=== PATIENT | male | born 1975 | race Caucasian/White ===

== ENCOUNTER 2018-05-02 14:58 | Inpatient (IN) | payer OTHER ==
--- NOTE | 2018-05-02 15:22 | EDPHY ---
H & P Time Seen by Provider: 05/02/18 15:17 Smoking Status: Never smoked Allergies/Adverse Reactions: No Known Allergies Allergy (Unverified 07/11/15 21:38) Home Medications: Medication Instructions Recorded Woodburn Carbonate [Woodburn 900 mg PO HS #0 cap 06/25/16 Carbonate Cap 300 mg (*)] Lamictal 05/02/18 Zyprexa 05/02/18 MDM/Departure - Depart Referrals: Patient,NotPresent [Primary Care Provider] - As per Instructions
--- NOTE | 2018-05-02 15:25 | EDPHY ---
H & P Time Seen by Provider: 05/02/18 15:17 HPI/ROS: CHIEF COMPLAINT: psychosis HISTORY OF PRESENT ILLNESS: The patient is a 43-year-old man with a history of bipolar and schizophrenia who police state was sent from [facility] with a hold stating that he is decompensated and is unable to care for himself. The note states that he is not eating or drinking or taking his medications. The patient tells me that he has nothing to do with [facility] but was simply in his apartment when police showed up and told him he was on a hold. He denies hallucinations. He denies suicidality. He denies recent drug or alcohol use. Severity: Moderate Modifying factors: None REVIEW OF SYSTEMS: Constitutional: denies: chills, fever, recent illness, recent injury EENTM: denies: blurred vision, double vision, nose congestion Respiratory: denies: cough, shortness of breath Cardiac: denies: chest pain, irregular heart rate, lightheadedness, palpitations Gastrointestinal/Abdominal: denies: abdominal pain, diarrhea, nausea, vomiting, blood streaked stools Genitourinary: denies: dysuria, frequency, hematuria, pain Musculoskeletal: denies: joint pain, muscle pain Skin: denies: lesions, rash, jaundice, bruising Neurological: denies: headache, numbness, paresthesia, tingling, dizziness, weakness Hematologic/Lymphatic: denies: blood clots, easy bleeding, easy bruising Immunologic/allergic: denies: HIV/AIDS, transplant EXAM: GENERAL: Somewhat disheveled food on face, well-nourished and in no acute distress. HEAD: Atraumatic, normocephalic. EYES: Pupils equal round and reactive to light, extraocular movements intact, sclera anicteric, conjunctiva are normal. ENT: TMs normal, nares patent, oropharynx clear without exudates. Moist mucous membranes. NECK: Normal range of motion, supple without lymphadenopathy or JVD. LUNGS: Breath sounds clear to auscultation bilaterally and equal. No wheezes rales or rhonchi. HEART: Regular rate and rhythm without murmurs, rubs or gallops. ABDOMEN: Soft, nontender, normoactive bowel sounds. No guarding, no rebound. No masses appreciated. BACK: No CVA tenderness, no spinal tenderness, step-offs or deformities EXTREMITIES: Normal range of motion, no pitting or edema. No clubbing or cyanosis. NEUROLOGICAL: Cranial nerves II through XII grossly intact. Normal speech, normal gait. 5/5 strength, normal movement in all extremities, normal sensation , normal reflexes PSYCH: Somewhat distracted, disheveled SKIN: Warm, dry, normal turgor, no visible rashes or lesions. Source: Patient, RN/MD Exam Limitations: Clinical condition - Medical/Surgical History Hx Asthma: No Hx Chronic Respiratory Disease: No Hx Diabetes: No Hx Cardiac Disease: No Hx Renal Disease: No Hx Cirrhosis: No Hx Alcoholism: No Hx HIV/AIDS: No Hx Splenectomy or Spleen Trauma: No Other PMH: Bipolar/ Psychotic break - Family History Significant Family History: No pertinent family hx - Social History Smoking Status: Never smoked Alcohol Use: Sober Drug Use: None Constitutional: Initial Vital Signs Temperature (C) 36.5 C 05/02/18 14:58 Heart Rate 75 05/02/18 14:58 Respiratory Rate 16 05/02/18 14:58 Blood Pressure 140/85 H 05/02/18 14:58 O2 Sat (%) 96 05/02/18 14:58 O2 Delivery Mode Room Air Allergies/Adverse Reactions: No Known Allergies Allergy (Unverified 07/11/15 21:38) Home Medications: Medication Instructions Recorded OLANZapine [ZyPREXA 2.5 mg (*)] 5 mg PO HS 05/02/18 lamoTRIgine [LamICTAL 100 MG (*)] 200 mg PO HS 05/02/18 Wheatcroft Carbonate ER [Eskalith Cr 900 mg PO HS 05/03/18 450 mg (*)] Medical Decision Making ED Course/Re-evaluation: 10:30 p.m. the patient has been evaluated and has been accepted at [address] [place] [address] Montague. We will complete transfer paperwork. Differential Diagnosis: Partial list of the Differential diagnosis considered include but were not limited to; schizophrenia, depression, suicidality and although unlikely based on the history and physical exam, I also considered intoxication, head injury, infection. - Data Points Laboratory Results: Laboratory Results 05/02/18 15:20 05/02/18 15:20 Medications Given: Lamotrigine (Lamictal) 200 mg PO [facility] Stop: 10/30/18 20:59 Last Admin: 05/03/18 20:40 Dose: 200 mg Wheatcroft Carbonate (Eskalith Cr) 900 mg PO HS [facility] Stop: 10/30/18 20:59 Last Admin: 05/03/18 20:39 Dose: 900 mg Olanzapine (Zyprexa Zydis) 10 mg PO HS [facility] Stop: 10/30/18 20:59 Last Admin: 05/03/18 20:39 Dose: 10 mg Discontinued Medications Lamotrigine (Lamictal) 200 mg PO EDNOW ONE Stop: 05/02/18 23:37 Last Admin: 05/02/18 23:48 Dose: 200 mg Wheatcroft Carbonate (Eskalith Cr) 900 mg PO EDNOW ONE Stop: 05/02/18 23:46 Last Admin: 05/02/18 23:48 Dose: 900 mg Olanzapine (Zyprexa Zydis) 5 mg PO EDNOW ONE Stop: 05/02/18 23:37 Last Admin: 05/02/18 23:49 Dose: 5 mg Departure - Departure Disposition: [facility] IP Clinical Impression: Psychosis Qualifiers: Psychosis type: unspecified psychosis type Qualified Code(s): F29 - Unspecified psychosis not due to a substance or known physiological condition Condition: Fair
[2018-05-02 15:34] LABS: PLATELET COUNT 188 10^3/uL (150-400)
--- NOTE | 2018-05-02 23:17 | ASMTTLCEVL ---
[facility] Evaluation - Basic Information Evaluation Start Date and 05/02/2018 10:00 PM Time Hospital Status Answers: M1 Hold 72-hr M1 Hold Start Date 05/02/2018 01:55 PM and Time Patient statement Notes: "It's evil. The police came in to my room and they wouldn't leave. They put a M1 hold on me." Narrative Notes: Pt is a 43 y/o , single, childless, unemployed male who lives alone under the care of [facility] after who was brought to [facility] Ed by [employer] after his psychiatrist and therapist noticed pt decompensating. Per Ivan Peterson, pt has had 2 years without an episode. Pt's parents live in [place] he checks in with them by phone every week and he is pretty consistent. When he did not check in this past week, they called [facility] to check on pt. Ivan stated that normally pt is very calm and cooperative and today when he went to check on him and rang his doorbell, pt was livid and became very upset that the police were there. Pt has a hx of not drinking or eating so they were concerned he may not have been staying hydrated. Pt refused IV fluids in the ED agreed to drink juice and water. Pt appeared disheveled, malodourous, and uncooperative during the evaluation. Pt appeared to be responding to internal stimuli throughout the evaluation. Diagnosis History Notes: Pt has a hx of Bipolar disorder, with psychotic features. Prior suicide attempts Notes: None reported. No self-harm hx except that in these acute states pt has been known to go without eating going on 2 weeks. It does not seem intentional. Prior hospitalizations Notes: Pt has been to [facility] and . Pt was last hospitalized at 07/12/15 through to 08/15/15 and 05/25/16-06/25/16. Pt was at [facility] prior to that for another lengthy stay. Pt reportedly kept trying to leave there. When pt left in August last year, he stepped down through [facility]. Treatment Responses Notes: Unknown History of violence Notes: None reported. Therapist: Ivan Peterson MA, [phone] Psychiatrist: Dr. Gina Morfin [phone] Medications (name, dosage, route, freq uency) Notes: lithium carbonate er 900 mg p.o. at bedtime, Lamictal, Zyprexa. Allergies/Reaction Notes: None known Sleep Notes: Unable to assess. Appetite Notes: Unable to assess. Medical/Surgical history Notes: None reported. Substance use history (frequency, intensity, his tory, duration) Notes: Pt was negative for etoh/doa. His hx does not include any use or abuse of substances. Family composition Notes: Parents (Bienvenido and Lian) who live in [place] are involved. Per previous [facility] records, Pts soc Delicia is listed on his face sheet and mentioned in previous reports but when caption writer asked about his family, pt said he has talked to his parents in a few weeks and that I should strike his soc off the list. Family psychiatric/substance abuse history Notes: There is a family hx of alcoholism with pts paternal aunt and his biological older sister. Maternal gmoc had hx of depression and post- depression and was hospitalized for 2 months after childbirth at a psychiatric hospital. Developmental history Notes: Family reported that pt has been extra sensitive to smells, tastes, sounds, etc. from a very young age. Marital status/children Notes: Unmarried, no children. Living situation Notes: Lives alone and is a client of [facility]. Sexual history/orientation Notes: Unable to asses. Peer support/family strengths Notes: Unable to assess. Education level/history Notes: Unknown Work history Notes: Unknown Notes: None Legal Notes: No legal problems reported. Restoration/Spiritual Notes: Unable to assess. Leisure Notes: Unable to assess. Collateral Notes: Ivan Braun MA [facility] Patient's strengths Answers: Intelligent (Please select at least TWO strengths): Supportive Family TLC Evaluation - Mental Status Exam Appearance: Answers: Disheveled Eye Contact: Answers: Avoiding Mood: Answers: Irritable Affect: Answers: Angry Behavior: Answers: Uncooperative Speech: Answers: Relevant Irrelevant Coherent Incoherent Nonsensical Thought Process: Answers: Disoriented Insight: Answers: Poor Judgement: Answers: Fair Hallucinations: Answers: Auditory Pt reported to have Answers: No suicidal/self-injuring ideation/behavior? Pt reported to be making Answers: No suicidal/self-injuring threats? Pt reported to have Answers: No aggression/assault ideation/behavior? Pt reported to be making Answers: No aggression/assault threats? Pt exhibits inability to Answers: Yes care for self/grave disability? Ideation/behavior is Answers: No chronic? History of Answers: No suicidal/self-injuring ideation, behavior, or threats? History of Answers: No aggressive/assaultive ideation, behavior, or threats? TLC Evaluation - Suicide/Homicide Risk Suicide Risk Factors: Answers: Bipolar Disorder Psychotic Disorder Homicide/violence risk Answers: None factors: Current Suicidal Answers: No Ideation? Current Suicidal Ideation Answers: No in the Past 48 Hours? Current Suicidal Ideation Answers: No in the Past Month? Current Suicidal Answers: No Ideation, Worst Ever? Suicide Internal Answers: Madalyn with Stress Protective Factors: Suicide External Answers: Positive Therapeutic Protective Factors: Relationships Ranking of patient's Answers: Moderate suicidal risk: Ranking of patient's Answers: Low homicidal risk: TLC Evaluation - Wrap-up AXIS I Diagnosis (include DSM-V and ICD-10 codes), must also be entered in [address], which is the source of truth. Notes: Bipolar I Disorder, with Psychotic Features 296.44 (F31.5) Evaluation End Date and 05/02/2018 10:15 PM Time (HH:ALMA): Date Signed: 05/02/2018 11:16 PM Electronically Signed By:Joanna Ibanez
--- NOTE | 2018-05-02 23:19 | ASMTTCLDSP ---
TLC Discharge Disposition Disposition: Answers: Admit Discharge Concerns/Recommendations: Notes: In consultation with [facility] ED physician, Oliver Grigsby MD and [facility] on-call psychiatrist Jones Montague MD, both concurred that pt appears to meet 27-65 criteria requiring psychiatric hospitalization as pt appears to be gravely disabled due to a mental illness condition. Pt was given the 3N prohibited belongings list while in the ED. Was patient given the Answers: Yes Inpatient Behavioral Health Prohibited Belongings List while in the ED? For inpatient Jones Montague MD admission, the following psychiatrist agreed to accept patient for admission to Behavioral [facility] ([facility]): Type of Hold: Answers: M1/72-hour Hold Hold initiated by: Answers: Police Date Signed: 05/02/2018 11:18 PM Electronically Signed By:Joanna Ibanez
[2018-05-02] MEDS ORDERED: OLANZapine DISINTEGR 5 MG TAB PO ONE (23:36)
[2018-05-02] MEDS ORDERED: lamoTRIgine 100 MG TAB PO ONE (23:36)
[2018-05-02] MEDS ORDERED: LITHIUM CARBONATE ER 450 MG TAB PO ONE ×2 (23:43→23:45)
[2018-05-03] MEDS ORDERED: MAG HYDROX/AL HYDROX/SIMETH 30 ML UDCUP PO PRN (03:17)
[2018-05-03] MEDS ORDERED: MAGNESIUM HYDROXIDE 30 ML UDCUP PO PRN (03:17)
[2018-05-03] MEDS ORDERED: ACETAMINOPHEN 325 MG TAB PO PRN (03:17)
[2018-05-03] MEDS ORDERED: NICOTINE POLACRILEX 2 MG GUM B PRN (03:17)
[2018-05-03] MEDS ORDERED: LORazepam 1 MG TAB PO PRN (03:18)
[2018-05-03] MEDS ORDERED: OLANZapine 10 MG TAB PO PRN (03:19)
--- NOTE | 2018-05-03 14:39 | ASMTCMCOM ---
CM Note CM Note Notes: [facility] called and spoke with CC. [facility] ([facility]) stated pt. is usually "pleasant and agreeable". COR stated when pt. is not doing well, he gets really angry, and very hostel with anybody. COR stated in the past pt was "basically catatonic and not eating or drinking". COR stated pt. has never been physically violent in the past, but can be very verbal. COR stated pt. travels a lot and has a trip planned in this fall to [place]. COR stated pt. did get injectable medications for this trip recently, adding this may be a possible trigger. COR stated pt. communicates with God often and becomes "absorbed in those conversations". COR stated pt. does not use drugs or alcohol. COR stated they have used Zyprexa to help prevent episodes in the past. COR stated they feel they caught the pt. early in this episode, and hope he will re-compensate quickly. COR stated in the past it has taken "a couple weeks" for pt. to re-compensate, adding pt. doesn't seem as bad this time. COR stated in the past, the pt has refused medications and did need COM. COR stated when pt. is well, he is willing to take his medications. COR stated they are unsure how often pt. was taking his Lamictal and to possibly restart it on a lower dose. COR stated in the past they progressively transitioned the pt. from [facility] back to his home. Date Signed: 05/03/2018 02:38 PM Electronically Signed By:Reny Samuels
--- NOTE | 2018-05-03 14:39 | ASMTBHMTP ---
Master Treatment Plan Master Treatment Plan Answers: Mood Instability with for: Psychosis Date: 05/03/2018 Diagnosis on Admission: Bipolar Disorder Expected length of stay: 3-5 Days Reason for admission: Notes: Per [facility]LC Evaluation - Pt. is a 43 year old , single, unemployed male who lives alone under the care of [facility] after who was brought to [facility] ED by [employer] after his psychiatrist and therapist noticed pt. decompensating. Per Ivan Peterson, pt has had 2 years without an episode. Pt.'s parents live in [place] and he checks in with them by phone every week and he is pretty consistent. When he did not check in this week, they called [facility] to check on pt. Patient's stated presenting problems: Notes: Evil people wanted me in here. Patient's goals for treatment: Notes: To grow in power and knowledge Patient's strengths: Notes: Courageous and sweet Identify supports outside of hospital: Notes: God Discharge criteria: Notes: Patient will demonstrate more stable mood by discharge. Initial disposition plan/considerations: Notes: Return to home and leave [facility] Master Treatment Plan Required Signatures Psychiatrist signature: Answers: Psychiatrist: RN on-shift signature: Answers: RN: Patient signature: Answers: Patient: Date Signed: 05/03/2018 08:56 AM Electronically Signed By:Reny Samuels
--- NOTE | 2018-05-03 15:46 | BAPA ---
[f rep st] ADMISSION PSYCHIATRIC ASSESSMENT DATE OF SERVICE: 05/03/2018 CHIEF COMPLAINT: "Some evil people put me in here. I need to go home." HISTORY OF PRESENT ILLNESS: The patient is a 43-year-old male with a history of schizoaffe ctive disorder. He is well known to me from previous hospitalizations, both at this facility and at [facility]. He has an approximate 6-year history of acute mental illness characterize d by severe recurrent psychosis which has required protracted hospitalization. He was hospitalized t [place] at [facility] under my care and then at this facility in June of 2014, 2014, and May of 2016. In each case, he had become acutely psychotic with very disorganiz ed thinking, inability to care for himself, characterized primarily by an unwillingness to eat or dri nk, inability to sleep at 1 point up to 2 weeks at a time, and extreme hallucinatory experiences. He will hear the voice of God and communicate directly with him, talking to God almost nonstop for week s at a time without sleep until he is able to recover. On this occasion, the patient had been under the care of [facility] as an outpatient and was living in his home. He had been managing his own medications and his outpatient psychiatrist, Dr. Calli Morfin, stated that she believed that he was compliant. He has a Wednesday evening phone call with his parents that he has had for years and whe n they called, he was almost nonverbal. They became concerned and called [facility], who went to his home yesterday to do a welfare check. When they arrived, he was irritable, agitated, hostile , hallucinating, talking to God, and the therapist, Ivan, called the police. Dr. Morfin placed Mr Michael Gutierrez on an M1 hold, and the police brought him to the hospital for evaluation. He was admitted to the hospital, though was quite unhappy and angry about this. I evaluated him today and he is paci ng up and down the halls. I was able to get him to stop and talk with me for approximately 15 minute s, but he struggles as he is actively communicating with God throughout the process. He states that he should not be in the hospital and should be released immediately because "evil people" have been c onspiring against him. He states that Dr. Morfin and Ivan both "lied to the police" in order to h ave him admitted and he believes this is "a power struggle." He reports being compliant with his med ications and states that he does not believe that he is having any acute mental problems at this time . PAST PSYCHIATRIC HISTORY: Largely as above. He is currently an outpatient at [facility] r the care of Dr. Calli Morfin. ALLERGIES: No known medical allergies. CURRENT MEDICATIONS: Include Zyprexa 5 mg h.s., lithium carbonate 900 mg h.s., and Lamictal 200 mg h .s. PAST MEDICAL HISTORY: Noncontributory. SOCIAL HISTORY: Patient has never been . He lives alone in a home he owns in [place], [facility]. He owns several other homes in [place] that he rents. He also supports himself through [employer] that he has done over time. His parents are his primary supports, though they are elderly and live in [place]. At 1 point he had support from his next-door neighbors who were also elderly, though it is unclear whether this continues at this time. He by all reports had been doing well and had been out of the hospital for almost 2 years before this current episode. SUBSTANCE ABUSE HISTORY: The patient has a history of some marijuana use in the past, though it is u nclear whether he has been using recently. ADMISSION LABORATORY: CBC shows no significant abnormalities. Serum chemistry showed a BUN up at 26 with a normal creatinine at 0.9. Nonfasting glucose is up at 112. Hemoglobin A1c is normal at 5.1. Liver function is normal. Urine drug screen is negative for all substances. Alcohol is less than detectable. Register was low at 0.4. It is unclear when the last dose of the lithium was. MENTAL STATUS EXAMINATION: Reveals the patient to be disheveled, walking up and down the halls bent over, and talking loudly to God. His affect is constricted, stable. His mood is not reported. His thought process is disorganized, and he is persistently distracted by internal stimuli. His thought content reveals the prominent auditory hallucinations and paranoia toward his outpatient providers. He is alert and oriented to person, place, time, and situation. There is no evidence of delirium. H is premorbid intellect is above average as evidenced by his educational and occupational histories, f und of knowledge, and vocabulary. He is not functioning to that level at this time. He voices no th oughts of suicide, homicide, or violence. His insight and judgment appear to be very poor. IMPRESSION: Schizoaffective disorder, bipolar type, most recent episode manic severe with psychosis, chronic illness, recurrent illness, marginal supports, social isolation. The patient is a 43-year-old male, well known to me from numerous protracted hospitalizatio ns for acute psychosis. He does not appear to be as bad as I have seen him in the past, though all o f his symptoms are consistent with previous presentations and certainly need to be arrested prior to a more serious decompensation. He has no insight into this and is demanding discharge at this time, rejecting his outpatient team, and stating he believes that he is being acted upon by evil. PLAN: 1. Admit to the behavioral health services inpatient unit on an M1 hold. 2. Continue outpatient medications including lithium, Lamictal, and Zyprexa. Will titrate Zyprexa f rom 5 to 10 mg. The patient's lithium level was subtherapeutic, so it is possible he was not taking it consistently prior to admission. Will not make an adjustment to the dose based on his increased B UN as this is almost certainly due to dehydration. 3. Will monitor his p.o. intake, though so far he has been drinking adequately and eating moderately . 4. Will work with the patient to engage in therapies and hopefully foster a therapeutic alliance. Annia robison also work with his outpatient team at [facility] as we go in order to help formulate a saf e discharge plan. Estimated length of stay is 10 to 14 days. /[id number]/MODL
--- NOTE | 2018-05-03 17:22 | BCON ---
[f rep st] BEHAVIORAL HEALTH CONSULTATION INTERNAL MEDICINE CONSULTATION DATE OF CONSULTATION: 05/03/2018 REFERRING PHYSICIAN: Jones Montague MD REASON FOR REFERRAL: Medical clearance for inpatient behavioral health stay. HISTORY OF PRESENT ILLNESS: This patient was brought to the emergency department yesterday on an M1 hold. Staff at [facility] was concerned that he was decompensating, not taking medications, eating or drinking, and unable to care for himself. Police were called for a welfare check and he was found to be agitated. He was brought to the emergency department where a mental health evaluation was done, and it was concluded that he needed to be inpatient for further psychiatric care. He currently is without any acute complaints. PAST MEDICAL HISTORY: 1. Bipolar disorder. 2. Dehydration with prerenal azotemia. PAST SURGICAL HISTORY: He has not had any surgeries. MEDICATIONS: Prior to admission: 1. Lamotrigine 100 mg XR 200 mg p.o. q.h.s. 2. Olanzapine 5 mg p.o. q.h.s. 3. [place] 900 mg p.o. q.h.s. SOCIAL HISTORY: He lives alone. He is supervised by [facility]. He is a nonsmoker. He does not work. FAMILY HISTORY: Noncontributory. REVIEW OF SYSTEMS: He is not in pain. He denies cough or dyspnea. He denies nausea, vomiting, constipation, diarrhea. He says he feels thirsty and reports that he is taking adequate fluids. He denies dysuria or urinary frequency. He denies joint pain or joint swelling. He denies fevers or chills. Otherwise, a 10-point review of systems is negative. PHYSICAL EXAMINATION: VITAL SIGNS: Blood pressure is 131/87, heart rate is 90 , respiratory rate is 16, oxygen saturation is 97% on room air. Temperature is 36.6 degrees centigrade. His weight is 74.8 kg for a body mass index of 21.8. GENERAL: This is a well-nourished, well-developed man, dressed in scrubs in a green hospital smock, pacing the lopez and mumbling to himself, cooperative, and in no acute distress. HEENT: Extraocular movements are intact. Pupils are equal, round, reactive to light. Mucous membranes are moist. Dentition is in good condition. NECK: Supple. HEART: Regular rate and rhythm with no murmurs , rubs, or gallops. LUNGS: Clear to auscultation bilaterally. ABDOMEN: Benign. EXTREMITIES: There is no cyanosis, clubbing, or edema. NEUROLOGIC: He is alert. Orientation was not checked. Cranial nerves 2-12 are grossly intact. There is no focal weakness. Sensation intact to light touch, and gait is within normal limits. SKIN: He has sunburn and peeling skin over his posterior neck. LABORATORY DATA: From the emergency department: CBC was overall within normal limits. There was a relative increase in neutrophils at 81.8% and absolute neutrophils were mildly elevated at 7.02, of no clinical significance. Serum chemistry revealed an elevated BUN of 26 and a creatinine of 0.9. Otherwise, renal function and electrolytes were normal. Glucose was elevated at 112, but this was at 3:20 in the afternoon and was likely not fasting. Hemoglobin A1c was normal at 5.1. Liver function tests were normal. Toxicology screen in the serum revealed an undetectable level of ethyl alcohol. [place] level was low at 0.4. Toxicology screen in the urine was negative for any substances of abuse. ASSESSMENT/RECOMMENDATIONS: 1. Mental health issues pending further evaluation and management per Psychiatry and the mental health team. 2. Sunburn. He denies any discomfort and no specific treatment is indicated. I would advise that he use sunscreen in the future when he is outside for prolonged periods during the daytime. 3. Dehydration. Per the emergency department note, he refused intravenous fluids, but did accept oral hydration. Observe for normal oral food and fluid intake. I see no medical contraindications to this patient's continued stay on the inpatient behavioral health unit or to any psychiatric medications or procedures. Thank you very much for including me in the care of this patient and please do not hesitate to contact me or the hospitalist service should there be need for further medical evaluation. /[id number]/MODL MTDD
--- NOTE | 2018-05-03 18:21 | PDMN ---
Medical Necessity Medical necessity: [id number] Schizophrenia spectrum disorders IN- 6 days M1 hold
[2018-05-03] MEDS: OLANZapine DISINTEGR 10 MG TAB PO SCH (20:39)
[2018-05-03] MEDS: LITHIUM CARBONATE ER 450 MG TAB PO SCH (20:39)
[2018-05-03] MEDS: lamoTRIgine 100 MG TAB PO SCH (20:40)
[2018-05-03] MEDS ORDERED: LITHIUM CARBONATE ER 450 MG TAB PO ONE (23:37)
--- NOTE | 2018-05-04 07:57 | ASMTCMCOM ---
CM Note CM Note Notes: Ct. is pacing the halls talking to himself out loud. CC checked in with him. He reported that he slept fine but was not sure how many hours. Asked ct. about plans to return to [facility] and he was adamant that he is not going back. He reported that he doesn't like [facility] and said that his plan is to go back home. Let him know that we will continue to discuss it further. Date Signed: 05/04/2018 07:56 AM Electronically Signed By:Cinthya Sutherland
--- NOTE | 2018-05-04 14:59 | SOAPPROG ---
SOAP Progress Note Assessment/Plan: Assessment: Plan: 05/04/18 14:59 Psychosis/mood: Remains quite psychotic, agitated. Compliant with meds, maintaining adequate PO intake, sleeping reasonably. CCM, monitor. Subjective: Pt seen, discussed with staff. Remains agitated, disorganized, actively RIS. Pacing halls talking to God. Eating and drinking well 90-100%. Slept 5.5 hours last night. Unable to engage with med due to internal preoccupation. Objective: Vital Signs Temp Pulse Resp BP Pulse Ox 36.6 C 90 16 131/87 H 97 05/03/18 02:25 05/03/18 03:19 05/03/18 03:19 05/03/18 03:19 05/03/18 03:19 MSE: Agitated, pacing, talking loudly to unseen person(s). Affect is constricted. Mood is "bad." TP appears generally disorganized. TC reveals RIS , persecutory thoughts of "evil people" trying to harm him. - Time Spent With Patient Time Spent With Patient: 15" ICD10 Worksheet Patient Problems: Problems Problem Status Onset Psychosis Acute Acute psychosis Acute Anorexia Acute Bipolar disorder Acute Poor fluid intake Acute
[2018-05-04] MEDS: lamoTRIgine 100 MG TAB PO SCH (20:11)
[2018-05-04] MEDS: LITHIUM CARBONATE ER 450 MG TAB PO SCH (20:11)
[2018-05-04] MEDS: OLANZapine DISINTEGR 10 MG TAB PO SCH (20:11)
--- NOTE | 2018-05-05 14:51 | ASMTCMCOM ---
CM Note CM Note Notes: Pt. was pacing the halls when CC approached. Pt. reports feeling "good". Pt. stated he slept "fine". Pt. reports eating well. Pt. reports no issues with his current medications. Pt. denied SI, HI, AVH and paranoia. Pt. presents as passive, guarded, responding to internal stimuli, and with no eye contact. Staff report pt. sleeping 7 hours last night. In treatment team meeting, pt. stated "I shouldn't be here", agreed to shower today, and stated he doesn't want to continue working with [facility]. Date Signed: 05/05/2018 02:50 PM Electronically Signed By:Reny Samuels
--- NOTE | 2018-05-05 17:46 | SOAPPROG ---
SOAP Progress Note Assessment/Plan: Assessment: Plan: 05/04/18 14:59 Psychosis/mood: Remains quite psychotic, agitated. Compliant with meds, maintaining adequate PO intake, sleeping reasonably. CCM, monitor. 05/05/18 17:48 Psychosis/Mood: Minimal improvement at this point. CCM. Subjective: Pt seen, discussed with staff. Continues to pace halls and talk loudly in an animated fashion to unseen persons. Compliant with meds. Eating and drinking well. Was able to come in to treatment planning and actively participate. Continues to deny the existence of any acute mental illness and state he will not return to [facility] due to belief that "they are bad people." Objective: Vital Signs Temp Pulse Resp BP Pulse Ox 36.9 C 63 16 136/83 H 97 05/05/18 06:00 05/05/18 06:00 05/05/18 06:00 05/05/18 06:00 05/05/18 06:00 MSE: Disheveled, malodorous. Activity level is increased, pacing. Mood is "fine." TP is generally disorganized, though can give goal-directed answers to some questions. TC reveals ongoing persistent RIS in a conversational manner. Paranoia persists also focused on outpatient treatment team. - Time Spent With Patient Time Spent With Patient: 25" ICD10 Worksheet Patient Problems: Problems Problem Status Onset Psychosis Acute Acute psychosis Acute Anorexia Acute Bipolar disorder Acute Poor fluid intake Acute
[2018-05-05] MEDS: lamoTRIgine 100 MG TAB PO SCH (21:14)
[2018-05-05] MEDS: OLANZapine DISINTEGR 10 MG TAB PO SCH (21:15)
[2018-05-05] MEDS: LITHIUM CARBONATE ER 450 MG TAB PO SCH (21:15)
--- NOTE | 2018-05-06 10:38 | ASMTCMCOM ---
CM Note CM Note Notes: Ct. continues to pace the halls talking to himself and to God. Grooming is marginal CC tried to check in with ct. but her refused to engage. He said that he is doing fine. Date Signed: 05/06/2018 10:37 AM Electronically Signed By:Cinthya Sutherland
[2018-05-06] MEDS: lamoTRIgine 100 MG TAB PO SCH (20:15)
[2018-05-06] MEDS: LITHIUM CARBONATE ER 450 MG TAB PO SCH (20:15)
[2018-05-06] MEDS: OLANZapine DISINTEGR 10 MG TAB PO SCH (20:16)
--- NOTE | 2018-05-06 22:12 | SOAPPROG ---
SOAP Progress Note Assessment/Plan: Assessment: Plan: 05/04/18 14:59 Psychosis/mood: Remains quite psychotic, agitated. Compliant with meds, maintaining adequate PO intake, sleeping reasonably. CCM, monitor. 05/05/18 17:48 Psychosis/Mood: Minimal improvement at this point. CCM. 05/06/18 22:12 Psychosis: REmains quiet ill. Compliant with meds. CCM. Subjective: Pt seen, discussed with staff. Continues to pace and talk to self. No aggression noted. Eating and drinking adequately. Compliant with meds. Sleep adequate. Objective: Vital Signs Temp Pulse Resp BP Pulse Ox 36.9 C 63 16 136/83 H 97 05/05/18 06:00 05/05/18 06:00 05/05/18 06:00 05/05/18 06:00 05/05/18 06:00 MSE: Disheveled, pacing, agitated. Affect is constricted. Mood is "good." TP linear at times, disorganized at others. TC reveals continues RIS. - Time Spent With Patient Time Spent With Patient: 15" ICD10 Worksheet Patient Problems: Problems Problem Status Onset Psychosis Acute Acute psychosis Acute Anorexia Acute Bipolar disorder Acute Poor fluid intake Acute
--- NOTE | 2018-05-07 17:17 | SOAPPROG ---
SOAP Progress Note Assessment/Plan: Assessment: Per Dr. Montague's note: Plan: 05/04/18 14:59 Psychosis/mood: Remains quite psychotic, agitated. Compliant with meds, maintaining adequate PO intake, sleeping reasonably. [facility], monitor. 05/05/18 17:48 Psychosis/Mood: Minimal improvement at this point. CCM. 05/06/18 22:12 Psychosis: REmains quiet ill. Compliant with meds. CCM. Subjective: Pt seen, discussed with staff. Continues to pace and talk to self. No aggression noted. Eating and drinking adequately. Compliant with meds. Sleep adequate. Plan: 05/07/18 17:13 1. Patient presents same as yesterday, pacing halls, talking to himself and God. 2. Eating and drinking adequate amounts. 3. No change in meds. 4. Per [facility] and Dr. Montague who know patient well, he improves slowly but noticeably while in hospital. Subjective: Met with patient, reviewed chart and d/w staff. Patient doesn't acknowledge or stop to talk to MD. After MD greets patient, he continues pacing without interrupting his stream of talking to himself. Patient is carrying on conversation with unknown person. Objective: Vital Signs Temp Pulse Resp BP Pulse Ox 36.7 C 90 14 136/86 H 97 05/07/18 06:00 05/07/18 06:00 05/07/18 06:00 05/07/18 06:00 05/07/18 06:00 MSE: Affect: Flat Mood: No response TP: Disorganized, illogical TC: Delusions Perception: AH Insight/Judgment: Impaired - Time Spent With Patient Time Spent With Patient: 15" - Pending Discharge Pending Discharge Within 24 Hours: No Pending Discharge Within 48 Hours: No ICD10 Worksheet Patient Problems: Problems Problem Status Onset Psychosis Acute Acute psychosis Acute Anorexia Acute Bipolar disorder Acute Poor fluid intake Acute
[2018-05-07] MEDS: LITHIUM CARBONATE ER 450 MG TAB PO SCH (21:09)
[2018-05-07] MEDS: lamoTRIgine 100 MG TAB PO SCH (21:09)
[2018-05-07] MEDS: OLANZapine DISINTEGR 10 MG TAB PO SCH (21:10)
--- NOTE | 2018-05-08 14:11 | ASMTCMCOM ---
CM Note CM Note Notes: CC attempted to meet with pt while he was pacing the halls. Pt. reported doing "okay". Pt. then stated he didn't want to speak with CC and continued pacing the halls. Staff report pt. sleeping 4 hours last night, being medication complaint and not showering. Date Signed: 05/08/2018 02:10 PM Electronically Signed By:Reny Samuels
--- NOTE | 2018-05-08 15:34 | SOAPPROG ---
SOAP Progress Note Assessment/Plan: Assessment: Per Dr. Montague's note: Plan: 05/04/18 14:59 Psychosis/mood: Remains quite psychotic, agitated. Compliant with meds, maintaining adequate PO intake, sleeping reasonably. [facility], monitor. 05/05/18 17:48 Psychosis/Mood: Minimal improvement at this point. CCM. 05/06/18 22:12 Psychosis: REmains quiet ill. Compliant with meds. CCM. Subjective: Pt seen, discussed with staff. Continues to pace and talk to self. No aggression noted. Eating and drinking adequately. Compliant with meds. Sleep adequate. Plan: 05/07/18 17:13 1. Patient presents same as yesterday, pacing halls, talking to himself and God. 2. Eating and drinking adequate amounts. 3. No change in meds. 4. Per [facility] and Dr. Montague who know patient well, he improves slowly but noticeably while in hospital. 05/08/18 15:31 1. No change 2. Eating and drinking adequately 3. CCM Subjective: Patient still pacing the halls restlessly and talking out loud to God. He keeps up a constant stream of conversation, often asking God, "should I talk to this person?" However, patient does not make eye contact or stop pacing when MD addresses him and asks questions. Objective: Vital Signs Temp Pulse Resp BP Pulse Ox 36.9 C 96 20 111/82 H 97 05/08/18 06:00 05/08/18 06:00 05/08/18 06:00 05/08/18 06:00 05/08/18 06:00 MSE: Affect: Flat Mood: "Fine" TP: Disorganized, illogical TC: No SI/HI reported Perception: AH, RIS Insight/Judgment: Impaired - Time Spent With Patient Time Spent With Patient: 15" - Pending Discharge Pending Discharge Within 24 Hours: No Pending Discharge Within 48 Hours: No ICD10 Worksheet Patient Problems: Problems Problem Status Onset Psychosis Acute Acute psychosis Acute Anorexia Acute Bipolar disorder Acute Poor fluid intake Acute
[2018-05-08] MEDS: lamoTRIgine 100 MG TAB PO SCH (19:51)
[2018-05-08] MEDS: OLANZapine DISINTEGR 10 MG TAB PO SCH (19:52)
[2018-05-08] MEDS: LITHIUM CARBONATE ER 450 MG TAB PO SCH (19:52)
--- NOTE | 2018-05-09 11:05 | SOAPPROG ---
SOAP Progress Note Assessment/Plan: Assessment: Plan: 05/04/18 14:59 Psychosis/mood: Remains quite psychotic, agitated. Compliant with meds, maintaining adequate PO intake, sleeping reasonably. [facility], monitor. 05/05/18 17:48 Psychosis/Mood: Minimal improvement at this point. [facility]. 05/06/18 22:12 Psychosis: REmains quiet ill. Compliant with meds. [facility]. 05/09/18 11:03 Psychosis: No real change. Will check lithium level, titrate Lamictal to [address]mg [address] to 300mg, and Zyprexa from 10mg to 15mg. Monitor. Subjective: Pt seen, discussed with staff, chart reviewed. He remains agitated, internally preoccupied to the exclusion of other interactions. He acknowledges my presences but does not interact. He continues to eat and drink adequately, slept 6.5 hours last night, and is compliant with meds. Objective: Vital Signs Temp Pulse Resp BP Pulse Ox 36.9 C 96 20 111/82 H 97 05/08/18 06:00 05/08/18 06:00 05/08/18 06:00 05/08/18 06:00 05/08/18 06:00 - Time Spent With Patient Time Spent With Patient: 15" ICD10 Worksheet Patient Problems: Problems Problem Status Onset Psychosis Acute Acute psychosis Acute Anorexia Acute Bipolar disorder Acute Poor fluid intake Acute
--- NOTE | 2018-05-09 14:17 | ASMTCMCOM ---
CM Note CM Note Notes: Patient continues to pace the halls and respond to internal stimuli. He does respond to direct questions with short answers. He reports that he is eating, drinking and sleeping well. He is taking his medications. Date Signed: 05/09/2018 02:16 PM Electronically Signed By:Lien Tamayo
[2018-05-09] MEDS: LITHIUM CARBONATE ER 450 MG TAB PO SCH (18:05)
[2018-05-09] MEDS: lamoTRIgine 100 MG TAB PO SCH (20:13)
[2018-05-09] MEDS: OLANZapine DISINTEGR 10 MG TAB PO SCH (20:14)
--- NOTE | 2018-05-10 12:41 | SOAPPROG ---
SOAP Progress Note Assessment/Plan: Assessment: Plan: 05/04/18 14:59 Psychosis/mood: Remains quite psychotic, agitated. Compliant with meds, maintaining adequate PO intake, sleeping reasonably. [facility], monitor. 05/05/18 17:48 Psychosis/Mood: Minimal improvement at this point. CCM. 05/06/18 22:12 Psychosis: REmains quiet ill. Compliant with meds. CCM. 05/09/18 11:03 Psychosis: No real change. Will check lithium level, titrate Lamictal to [address] to 300mg, and Zyprexa from 10mg to 15mg. Monitor. 05/10/18 12:41 Psychosis: Slow improvement. [facility]. Will reorder lithium level. Subjective: Pt seen, discussed with staff. Continues to pace halls, talk to self in an animated manner. Compliant with meds. Staff unable to draw blood this morning. Eating and drinking adequately. Objective: Vital Signs Temp Pulse Resp BP Pulse Ox 36.4 C 108 H 15 134/88 H 98 05/10/18 06:00 05/10/18 06:00 05/10/18 06:00 05/10/18 06:00 05/10/18 06:00 MSE: Disheveled, malodorous. Affect is animated, odd, changes with topic of conversation with unseen persons. Mood is "good." TP is disorganized. TC reveals continued AH's, paranoia. - Time Spent With Patient Time Spent With Patient: 15" ICD10 Worksheet Patient Problems: Problems Problem Status Onset Psychosis Acute Acute psychosis Acute Anorexia Acute Bipolar disorder Acute Poor fluid intake Acute
[2018-05-10] MEDS: lamoTRIgine 100 MG TAB PO SCH (19:08)
[2018-05-10] MEDS: LITHIUM CARBONATE ER 450 MG TAB PO SCH (19:09)
[2018-05-10] MEDS: OLANZapine DISINTEGR 10 MG TAB PO SCH (19:10)
--- NOTE | 2018-05-11 11:10 | ASMTBHDC ---
Notes Note: Notes: CC checked in with the patient; who insisted that he was wrongfully hospitalized. He stated, "my psychiatrist put me on a hold that I didn't agree with." The patient refuses to continue OP services with [facility] at this time. The patient requested new OP provider referrals and agreed to discuss this request with the psychiatrist. Regarding his inpatient stay the patient stated, "won't my insurance cut?" He also stated, "I want to go home" several times during the interaction. The patient was observed pacing the hallway; he appeared to be responding to internal stimuli. The patient made intermittent eye contact infrequently and otherwise hung his head, chin towards his chest, with his gaze towards the floor. Date Signed: 05/11/2018 11:09 AM Electronically Signed By:Rafia Echavarria
--- NOTE | 2018-05-11 11:19 | SOAPPROG ---
SOAP Progress Note Assessment/Plan: Assessment: Plan: 05/04/18 14:59 Psychosis/mood: Remains quite psychotic, agitated. Compliant with meds, maintaining adequate PO intake, sleeping reasonably. [facility], monitor. 05/05/18 17:48 Psychosis/Mood: Minimal improvement at this point. CCM. 05/06/18 22:12 Psychosis: REmains quiet ill. Compliant with meds. CCM. 05/09/18 11:03 Psychosis: No real change. Will check lithium level, titrate Lamictal to [address] to 300mg, and Zyprexa from 10mg to 15mg. Monitor. 05/10/18 12:41 Psychosis: Slow improvement. [facility]. Will reorder lithium level. 05/11/18 11:19 Psychosis: Remains compliant with treatment. [facility]. Subjective: Pt seen, discussed with staff. Continues to pace most of the day, talking to himself. Eating and sleeping. I was able to engage him in a conversation regarding follow-up care after d/c. He continues to state that he will not work with [facility] due to concern that "they are evil people." Unable to identify other resources. Does not trust his neighbors to watch his property. Also states he has a "distant" relationship with his parents and does not see them as a resource. Objective: Vital Signs Temp Pulse Resp BP Pulse Ox 36.4 C 108 H 15 134/88 H 98 05/10/18 06:00 05/10/18 06:00 05/10/18 06:00 05/10/18 06:00 05/10/18 06:00 MSE: Poorly groomed, moderately agitated, pacing, talking to unseen persons. Able to stop and engage briefly. Immediately resumes conversation after interruption. TP is linear for brief periods, distracted by internal processes. TC reveals ongoing paranoid thoughts re: primary support groups and AH's. - Time Spent With Patient Time Spent With Patient: 15" ICD10 Worksheet Patient Problems: Problems Problem Status Onset Psychosis Acute Acute psychosis Acute Anorexia Acute Bipolar disorder Acute Poor fluid intake Acute
[2018-05-11] MEDS: LITHIUM CARBONATE ER 450 MG TAB PO SCH (20:19)
[2018-05-11] MEDS: lamoTRIgine 100 MG TAB PO SCH (20:20)
[2018-05-11] MEDS: OLANZapine DISINTEGR 10 MG TAB PO SCH (20:21)
--- NOTE | 2018-05-12 11:34 | ASMTCMCOM ---
CM Note CM Note Notes: CC checked in with ct. He appears somewhat better but continues to pace the halls. He continues to respond to internal stimuli. He denies that he hears voices and reported that he thinks more clearly when talking to himself. His grooming is marginal. His plan is to return home upon d/c. He said that at home he is "mostly solitary" but that he takes hikes and attends concerts. He continue to refuse [facility] services. Per staff he is not yeat at baseline. Date Signed: 05/12/2018 11:33 AM Electronically Signed By:Cintyha Sutherland
--- NOTE | 2018-05-12 14:44 | SOAPPROG ---
SOAP Progress Note Assessment/Plan: Assessment: Plan: 05/04/18 14:59 Psychosis/mood: Remains quite psychotic, agitated. Compliant with meds, maintaining adequate PO intake, sleeping reasonably. [facility], monitor. 05/05/18 17:48 Psychosis/Mood: Minimal improvement at this point. CCM. 05/06/18 22:12 Psychosis: REmains quiet ill. Compliant with meds. CCM. 05/09/18 11:03 Psychosis: No real change. Will check lithium level, titrate Lamictal to [address] to 300mg, and Zyprexa from 10mg to 15mg. Monitor. 05/10/18 12:41 Psychosis: Slow improvement. [facility]. Will reorder lithium level. 05/11/18 11:19 Psychosis: Remains compliant with treatment. CCM. 05/12/18 14:46 Psychosis: Slow improvement. Tolerating med titrations well. Insight and judgement remain very poor. [facility]. Subjective: Pt seen, discussed with staff. Interviewed in treatment planning meeting. He continues to pace the halls and talk to himself. Tells team that he is " totally sane" and "need to be released immediately." He remains compliant with meds, but states he doesn't need any f/u "because I don't have a mental illness. " He was shown his treatment plan that indicates psychosis and he voices disagreement with this. When asked about his talking to himself and apparent RIS/AH's, he states, "I'm not hallucinating, I'm just talking to myself. It helps me focus." Continues to refuse to f/u with [facility]. Objective: Vital Signs Temp Pulse Resp BP Pulse Ox 36.5 C 86 16 107/73 97 05/12/18 06:00 05/12/18 06:00 05/12/18 06:00 05/12/18 06:00 05/12/18 06:00 MSE: Moderately agitated, pacing, talking to himself. Able to sit during treatment team meeting and tolerate interaction with large group. Poorly groomed, malodorous. Affect is constricted, stable, irritable at times. Mood is "fine." TP linear for brief periods, derails frequently with internal dialogue. TC reveals continuous RIS/AH. - Time Spent With Patient Time Spent With Patient: 25" ICD10 Worksheet Patient Problems: Problems Problem Status Onset Psychosis Acute Acute psychosis Acute Anorexia Acute Bipolar disorder Acute Poor fluid intake Acute
[2018-05-12] MEDS: LITHIUM CARBONATE ER 450 MG TAB PO SCH (20:18)
[2018-05-12] MEDS: lamoTRIgine 100 MG TAB PO SCH (20:19)
[2018-05-12] MEDS: OLANZapine DISINTEGR 10 MG TAB PO SCH (20:20)
--- NOTE | 2018-05-13 11:21 | ASMTCMCOM ---
CM Note CM Note Notes: CC checked in with ct. who continue pacing the halls talking to himself. Ct. hygene is becoming an issue. CC tried to engage ct. in conversation about taking showers more often but he refused to engage and wave CC off. Date Signed: 05/13/2018 11:18 AM Electronically Signed By:Cinthya Sutherland
--- NOTE | 2018-05-13 16:19 | SOAPPROG ---
SOAP Progress Note Assessment/Plan: Assessment: Plan: 05/04/18 14:59 Psychosis/mood: Remains quite psychotic, agitated. Compliant with meds, maintaining adequate PO intake, sleeping reasonably. [facility], monitor. 05/05/18 17:48 Psychosis/Mood: Minimal improvement at this point. CCM. 05/06/18 22:12 Psychosis: REmains quiet ill. Compliant with meds. CCM. 05/09/18 11:03 Psychosis: No real change. Will check lithium level, titrate Lamictal to [address] to 300mg, and Zyprexa from 10mg to 15mg. Monitor. 05/10/18 12:41 Psychosis: Slow improvement. [facility]. Will reorder lithium level. 05/11/18 11:19 Psychosis: Remains compliant with treatment. CCM. 05/12/18 14:46 Psychosis: Slow improvement. Tolerating med titrations well. Insight and judgement remain very poor. CCM. 05/13/18 16:21 Psychosis: No change. CCM. Needs more time to respond as he has shown in the past. Subjective: Pt seen, discussed with staff. Continues to pace lopez and talk to himself. Will not participate in groups. States repeatedly that he is "completely sane" and needs to be discharged. Remains compliant with meds and is eating and drinking adequately. Continues to refuse to shower, however, and smells quite bad. Will not discuss this with me. Objective: Vital Signs Temp Pulse Resp BP Pulse Ox 36.5 C 86 16 107/73 97 05/12/18 06:00 05/12/18 06:00 05/12/18 06:00 05/12/18 06:00 05/12/18 06:00 MSE: Agitated, pacing. Affect is constricted. Mood is "fine". TP is disorganized. TC reveals continuous internal preoccupation. - Time Spent With Patient Time Spent With Patient: 15" ICD10 Worksheet Patient Problems: Problems Problem Status Onset Psychosis Acute Acute psychosis Acute Anorexia Acute Bipolar disorder Acute Poor fluid intake Acute
[2018-05-13] MEDS: OLANZapine DISINTEGR 10 MG TAB PO SCH (20:46)
[2018-05-13] MEDS: lamoTRIgine 100 MG TAB PO SCH (20:47)
[2018-05-13] MEDS: LITHIUM CARBONATE ER 450 MG TAB PO SCH (20:47)
--- NOTE | 2018-05-14 10:45 | ASMTBHDC ---
Notes Note: Notes: CC checked in with the patient; who insisted that he was wrongfully hospitalized. He stated, "my psychiatrist put me on a hold that I didn't agree with." The patient refuses to continue OP services with [facility] at this time. The patient requested new OP provider referrals and agreed to discuss this request with the psychiatrist. Regarding his inpatient stay the patient stated, "won't my insurance cut?" He also stated, "I want to go home" several times during the interaction. The patient was observed pacing the hallway; he appeared to be responding to internal stimuli. The patient made intermittent eye contact infrequently and otherwise hung his head, chin towards his chest, with his gaze towards the floor. Date Signed: 05/14/2018 10:44 AM Electronically Signed By:Rafia Echavarria
--- NOTE | 2018-05-14 11:02 | ASMTCMCOM ---
CM Note CM Note Notes: CC checked in with the patient; who was observed pacing the hallway. He stated, "I told him [psychiatrist], he didn't seem to care... He didn't give me a discharge update." The patient denied SI before stating, "I'm going this way." He proceed to turn around and walk in the other direction. The patient is not participating in programming; including not attending groups, and is seen pacing. The patient appears guarded and dismissive. Date Signed: 05/14/2018 11:01 AM Electronically Signed By:Rafia Echavarria
--- NOTE | 2018-05-14 16:14 | SOAPPROG ---
SOAP Progress Note Assessment/Plan: Assessment: Per Dr. Montague's note: 05/09/18 11:03 Psychosis: No real change. Will check lithium level, titrate Lamictal to [address] to 300mg, and Zyprexa from 10mg to 15mg. Monitor. 05/10/18 12:41 Psychosis: Slow improvement. CCM. Will reorder lithium level. 05/11/18 11:19 Psychosis: Remains compliant with treatment. CCM. 05/12/18 14:46 Psychosis: Slow improvement. Tolerating med titrations well. Insight and judgement remain very poor. CCM. 05/13/18 16:21 Psychosis: No change. CCM. Needs more time to respond as he has shown in the past. Subjective: Pt seen, discussed with staff. Continues to pace lopez and talk to himself. Will not participate in groups. States repeatedly that he is "completely sane" and needs to be discharged. Remains compliant with meds and is eating and drinking adequately. Continues to refuse to shower, however, and smells quite bad. Will not discuss this with me. Plan: 05/14/18 16:10 1. Patient will not answer MD's questions or respond to MD in any way. 2. Patient continues to pace halls, talks to himself. However, MD notes patient does take breaks and sleep for short periods of time during day. 3. Patient compliant with meds. 4. No med changes Subjective: Patient does not acknowledge MD or respond to MD's questions. He is pacing lopez and talking to himself with downcast gaze. MD notices patient takes break from pacing and sleeps for short period in afternoon. Patient is eating and drinking adequately, but not attending to ADL's. He has not showered or bathed since admission and is wearing same clothes as last weekend. Objective: Vital Signs Temp Pulse Resp BP Pulse Ox 36.4 C 113 H 16 122/85 H 99 05/14/18 06:00 05/14/18 06:00 05/14/18 06:00 05/14/18 06:00 05/14/18 06:00 MSE: Affect: Flat Mood: No response TP: Unable to assess TC: Unable to assess Perception: Responding to IS, actively talking to "God" and himself Insight/Judgment: Impaired - Time Spent With Patient Time Spent With Patient: 15" - Pending Discharge Pending Discharge Within 24 Hours: No Pending Discharge Within 48 Hours: No ICD10 Worksheet Patient Problems: Problems Problem Status Onset Psychosis Acute Acute psychosis Acute Anorexia Acute Bipolar disorder Acute Poor fluid intake Acute
[2018-05-14] MEDS: OLANZapine DISINTEGR 10 MG TAB PO SCH (20:21)
[2018-05-14] MEDS: lamoTRIgine 100 MG TAB PO SCH (20:21)
[2018-05-14] MEDS: LITHIUM CARBONATE ER 450 MG TAB PO SCH (20:22)
--- NOTE | 2018-05-15 14:29 | ASMTCMCOM ---
CM Note CM Note Notes: The patient denied support from this medical underwriter. There are no observable changes in this patient's affect or behavior. He appeared to be responding to internal stimuli as he continued to pace the hallway. Date Signed: 05/15/2018 02:29 PM Electronically Signed By:Rafia Echavarria
--- NOTE | 2018-05-15 15:57 | SOAPPROG ---
SOAP Progress Note Assessment/Plan: Assessment: Per Dr. Montague's note: 05/09/18 11:03 Psychosis: No real change. Will check lithium level, titrate Lamictal to [address] to 300mg, and Zyprexa from 10mg to 15mg. Monitor. 05/10/18 12:41 Psychosis: Slow improvement. CCM. Will reorder lithium level. 05/11/18 11:19 Psychosis: Remains compliant with treatment. CCM. 05/12/18 14:46 Psychosis: Slow improvement. Tolerating med titrations well. Insight and judgement remain very poor. CCM. 05/13/18 16:21 Psychosis: No change. CCM. Needs more time to respond as he has shown in the past. Subjective: Pt seen, discussed with staff. Continues to pace lopez and talk to himself. Will not participate in groups. States repeatedly that he is "completely sane" and needs to be discharged. Remains compliant with meds and is eating and drinking adequately. Continues to refuse to shower, however, and smells quite bad. Will not discuss this with me. Plan: 05/14/18 16:10 1. Patient will not answer MD's questions or respond to MD in any way. 2. Patient continues to pace halls, talks to himself. However, MD notes patient does take breaks and sleep for short periods of time during day. 3. Patient compliant with meds. 4. No med changes 05/15/18 15:53 1. No change 2. [facility] Subjective: Patient still pacing the halls and talking to himself. However, MD has noticed in the past 2 days that patient is starting to have some minimal interactions with his external environment and is not as completely internally preoccupied as last weekend. For example, MD observed patient sitting at desk in [place] working on [employer]. RN also reported patient stopped pacing briefly to answer simple questions, such as "can I do your laundry?" and "what toiletries would you like?" RN noted that patient responded appropriately to these questions and then went back to mumbling and talking out loud. Objective: Vital Signs Temp Pulse Resp BP Pulse Ox 36.4 C 113 H 16 122/85 H 99 05/14/18 06:00 05/14/18 06:00 05/14/18 06:00 05/14/18 06:00 05/14/18 06:00 MSE: Affect: Constricted Mood: No response TP: Disorganized, illogical, but briefly linear and goal-directed when answering simple questions from RN TC: No SI/HI Insight/Judgment: Impaired - Time Spent With Patient Time Spent With Patient: 15" - Pending Discharge Pending Discharge Within 24 Hours: No Pending Discharge Within 48 Hours: No ICD10 Worksheet Patient Problems: Problems Problem Status Onset Psychosis Acute Acute psychosis Acute Anorexia Acute Bipolar disorder Acute Poor fluid intake Acute
[2018-05-15] MEDS: OLANZapine DISINTEGR 10 MG TAB PO SCH (20:47)
[2018-05-15] MEDS: lamoTRIgine 100 MG TAB PO SCH (20:47)
[2018-05-15] MEDS: LITHIUM CARBONATE ER 450 MG TAB PO SCH (20:48)
--- NOTE | 2018-05-16 13:53 | ASMTCMCOM ---
CM Note CM Note Notes: Therapist (Ivan) meets with CC briefly to discuss client. Per Ivan, client has spent last episode (a month in the hospital). He continues to suggests that " a bench robibe for client's turn around historically has been his willingness to participate in his treatment with [facility]." He notes, that the plan is still for client to be discharged to [facility] from [facility], etc. He notes, that "client would not speak to me today after asking;" suggesting he is not near his baseline, etc. Therapist notes, that he will connect again with this credit underwriter later this week.* Date Signed: 05/16/2018 01:52 PM Electronically Signed By:Victor Hugo Bangura
--- NOTE | 2018-05-16 16:08 | SOAPPROG ---
SOAP Progress Note Assessment/Plan: Assessment: Plan: 05/04/18 14:59 Psychosis/mood: Remains quite psychotic, agitated. Compliant with meds, maintaining adequate PO intake, sleeping reasonably. [facility], monitor. 05/05/18 17:48 Psychosis/Mood: Minimal improvement at this point. CCM. 05/06/18 22:12 Psychosis: REmains quiet ill. Compliant with meds. CCM. 05/09/18 11:03 Psychosis: No real change. Will check lithium level, titrate Lamictal to [address] to 300mg, and Zyprexa from 10mg to 15mg. Monitor. 05/10/18 12:41 Psychosis: Slow improvement. CCM. Will reorder lithium level. 05/11/18 11:19 Psychosis: Remains compliant with treatment. CCM. 05/12/18 14:46 Psychosis: Slow improvement. Tolerating med titrations well. Insight and judgement remain very poor. CCM. 05/13/18 16:21 Psychosis: No change. CCM. Needs more time to respond as he has shown in the past. 05/16/18 16:08 Psychosis: Slow improvement. CCM. Subjective: Pt seen, discussed with staff, chart reviewed. Remains about the same. Reportedly tried to engage a bit more with others over the weekend. Hygiene continues to deteriorate. Compliant with meds. Eating and sleeping adequately. Objective: Vital Signs Temp Pulse Resp BP Pulse Ox 36.4 C 113 H 16 122/85 H 99 05/14/18 06:00 05/14/18 06:00 05/14/18 06:00 05/14/18 06:00 05/14/18 06:00 - Time Spent With Patient Time Spent With Patient: 15" ICD10 Worksheet Patient Problems: Problems Problem Status Onset Psychosis Acute Acute psychosis Acute Anorexia Acute Bipolar disorder Acute Poor fluid intake Acute
[2018-05-16] MEDS: OLANZapine DISINTEGR 10 MG TAB PO SCH (20:56)
[2018-05-16] MEDS: lamoTRIgine 100 MG TAB PO SCH (20:57)
[2018-05-16] MEDS: LITHIUM CARBONATE ER 450 MG TAB PO SCH (20:57)
--- NOTE | 2018-05-17 16:45 | SOAPPROG ---
SOAP Progress Note Assessment/Plan: Assessment: Plan: 05/04/18 14:59 Psychosis/mood: Remains quite psychotic, agitated. Compliant with meds, maintaining adequate PO intake, sleeping reasonably. [facility], monitor. 05/05/18 17:48 Psychosis/Mood: Minimal improvement at this point. CCM. 05/06/18 22:12 Psychosis: REmains quiet ill. Compliant with meds. CCM. 05/09/18 11:03 Psychosis: No real change. Will check lithium level, titrate Lamictal to [address] to 300mg, and Zyprexa from 10mg to 15mg. Monitor. 05/10/18 12:41 Psychosis: Slow improvement. [facility]. Will reorder lithium level. 05/11/18 11:19 Psychosis: Remains compliant with treatment. CCM. 05/12/18 14:46 Psychosis: Slow improvement. Tolerating med titrations well. Insight and judgement remain very poor. CCM. 05/13/18 16:21 Psychosis: No change. CCM. Needs more time to respond as he has shown in the past. 05/16/18 16:08 Psychosis: Slow improvement. CCM. 05/17/18 16:44 Psychosis: Continued slow improvement. Remains very ill, gravely disabled. Subjective: Pt seen, discussed with staff. He is noted to be less agitated, pacing less. Spending more time in his room, lying in bed. Continues to eat well. Struggles to interact with others, unable to exclude internal processes. Compliant with meds. Objective: Vital Signs Temp Pulse Resp BP Pulse Ox 36.4 C 113 H 16 122/85 H 99 05/14/18 06:00 05/14/18 06:00 05/14/18 06:00 05/14/18 06:00 05/14/18 06:00 - Time Spent With Patient Time Spent With Patient: 15" ICD10 Worksheet Patient Problems: Problems Problem Status Onset Psychosis Acute Acute psychosis Acute Anorexia Acute Bipolar disorder Acute Poor fluid intake Acute
[2018-05-17] MEDS: OLANZapine DISINTEGR 10 MG TAB PO SCH (20:28)
[2018-05-17] MEDS: lamoTRIgine 100 MG TAB PO SCH (20:29)
[2018-05-17] MEDS: LITHIUM CARBONATE ER 450 MG TAB PO SCH (20:30)
--- NOTE | 2018-05-18 13:16 | SOAPPROG ---
SOAP Progress Note Assessment/Plan: Assessment: Plan: 05/04/18 14:59 Psychosis/mood: Remains quite psychotic, agitated. Compliant with meds, maintaining adequate PO intake, sleeping reasonably. [facility], monitor. 05/05/18 17:48 Psychosis/Mood: Minimal improvement at this point. CCM. 05/06/18 22:12 Psychosis: REmains quiet ill. Compliant with meds. CCM. 05/09/18 11:03 Psychosis: No real change. Will check lithium level, titrate Lamictal to [address] to 300mg, and Zyprexa from 10mg to 15mg. Monitor. 05/10/18 12:41 Psychosis: Slow improvement. CCM. Will reorder lithium level. 05/11/18 11:19 Psychosis: Remains compliant with treatment. CCM. 05/12/18 14:46 Psychosis: Slow improvement. Tolerating med titrations well. Insight and judgement remain very poor. CCM. 05/13/18 16:21 Psychosis: No change. CCM. Needs more time to respond as he has shown in the past. 05/16/18 16:08 Psychosis: Slow improvement. CCM. 05/17/18 16:44 Psychosis: Continued slow improvement. Remains very ill, gravely disabled. 05/18/18 13:22 Psychosis: Continued gradual improvement. Will CCM with increase in Lamictal to 300mg and lithium level in the am. Await meeting between Dr. Boudreaux and pt to determine d/c plan. Subjective: Pt seen, discussed with staff who report pt appears to be improving. He continues to pace, though has slowed down and is pacing less. He is spending more time in his room, typically lying quietly in bed. Eating and sleeping well. Peer to peer with Carmen cifuentes and the reviewer only granted through today with d/c tomorrow. Case reviewed with Dr. Morfin who states pt could go to [facility] tomorrow if he was willing. Objective: Vital Signs Temp Pulse Resp BP Pulse Ox 36.4 C 113 H 16 122/85 H 99 05/14/18 06:00 05/14/18 06:00 05/14/18 06:00 05/14/18 06:00 05/14/18 06:00 MSE: Calmer, though remains agitated, pacing. Continues to talk to himself, though with single words or short sentences; no further running dialogue. Affect is constricted. Mood is "fine." TP is abbreviated, tangential at times. TC reveals continued RIS, paranoia. - Time Spent With Patient Time Spent With Patient: 25" ICD10 Worksheet Patient Problems: Problems Problem Status Onset Psychosis Acute Acute psychosis Acute Anorexia Acute Bipolar disorder Acute Poor fluid intake Acute
[2018-05-18] MEDS: LITHIUM CARBONATE ER 450 MG TAB PO SCH (18:21)
[2018-05-18] MEDS: OLANZapine DISINTEGR 10 MG TAB PO SCH (18:21)
[2018-05-18] MEDS: lamoTRIgine 100 MG TAB PO SCH (18:22)
--- NOTE | 2018-05-18 18:25 | ASMTCMCOM ---
CM Note CM Note Notes: Ct. continues pacing the halls talking softly to himself. CC checked in with ct. who said that he is fine. CC then asked ct. and if he reconsidered going back to [facility]. Ct. stopped pacing , turned toward CC and in a very [place] voice said "I'm not going back to [facility] do you hear me?". He then started pacing again. Date Signed: 05/18/2018 12:10 PM Electronically Signed By:Cinthya Sutherland
--- NOTE | 2018-05-19 12:08 | ASMTCMCOM ---
CM Note CM Note Notes: The patient attended and participated in clinical treatment team rounds. The team discussed his progress including that he was increasingly calm and quieter/less responding to internal stimuli. The patient was reportedly hostile with his OP provider, Calli oMrfin MD, during yesterday's visit. The team discussed ADLs with the patient; encouraging him to participate in grooming and hygiene The patient responded, "I don't think it's any of your buisness." He refused to sign his treatment goals document; acknowledging the written DX he stated, "I don't have schizophrenia, it's nonsense and you know it." Additionally, he stated, "I'm absolutely not going back to [facility]. Date Signed: 05/19/2018 12:02 PM Electronically Signed By:Rafia Echavarria
--- NOTE | 2018-05-19 12:12 | ASMTCMCOM ---
CM Note CM Note Notes: The patient refused to meet with this principal technical writer. He was observed pacing the hallway; responding to internal stimuli. Date Signed: 05/19/2018 12:04 PM Electronically Signed By:Rafia Echavarria
--- NOTE | 2018-05-19 12:25 | ASMTBHFAM ---
Notes Note: Notes: Jones Montague MD overrode the LUIS for Garo's parents. CC spoke with Bienvenido Gutierrez, who stated, "He goes into these states...It is almost like he flips a switch. It usually takes several weeks. I think this time they caught it sooner and was admitted; he adhered to medications early in his hospitalization which is supportive to his recovery. Date Signed: 05/19/2018 12:12 PM Electronically Signed By:Rafia Echavarria
--- NOTE | 2018-05-19 16:01 | SOAPPROG ---
SOAP Progress Note Assessment/Plan: Assessment: Plan: 05/04/18 14:59 Psychosis/mood: Remains quite psychotic, agitated. Compliant with meds, maintaining adequate PO intake, sleeping reasonably. [facility], monitor. 05/05/18 17:48 Psychosis/Mood: Minimal improvement at this point. CCM. 05/06/18 22:12 Psychosis: REmains quiet ill. Compliant with meds. CCM. 05/09/18 11:03 Psychosis: No real change. Will check lithium level, titrate Lamictal to [address] to 300mg, and Zyprexa from 10mg to 15mg. Monitor. 05/10/18 12:41 Psychosis: Slow improvement. CCM. Will reorder lithium level. 05/11/18 11:19 Psychosis: Remains compliant with treatment. CCM. 05/12/18 14:46 Psychosis: Slow improvement. Tolerating med titrations well. Insight and judgement remain very poor. CCM. 05/13/18 16:21 Psychosis: No change. CCM. Needs more time to respond as he has shown in the past. 05/16/18 16:08 Psychosis: Slow improvement. CCM. 05/17/18 16:44 Psychosis: Continued slow improvement. Remains very ill, gravely disabled. 05/18/18 13:22 Psychosis: Continued gradual improvement. Will CCM with increase in Lamictal to 300mg and lithium level in the am. Await meeting between Dr. Boudreaux and pt to determine d/c plan. 05/19/18 16:02 Psychosis: Slow improvement. CCM. Subjective: Pt seen, discussed with staff. Interviewed in Treatment Team meeting. He continues to pace, but more slowly. I spoke with Dr. Morfin yesterday evening and she states he was very short with her, stating she is an "evil woman" and that he "will never be under your thumb again." He reiterated this in TT meeting today. Adamant that he will not return there for f/u in any setting. He also states that he is "perfectly sane" and needs to be released immediately to return home by himself. He refuses to sign treatment plan as it includes dx of Schizoaffective D/o which he states is "untrue and offensive." CC spoke with pt's father and he states they (M&F) are too busy traveling to come for more than one day. Also stated that pt doesn't interact much so it is a waste of time. Objective: Vital Signs Temp Pulse Resp BP Pulse Ox 36.4 C 113 H 16 122/85 H 99 05/14/18 06:00 05/14/18 06:00 05/14/18 06:00 05/14/18 06:00 05/14/18 06:00 MSE: Poorly groomed, malodorous. I asked him to shower today and he agrees although he states, "I don't need to." Speech is decreased in production, tone , rate and flow. Affect is blunted, stable. Mood is "fine." TP is abbreviated , poorly organized. TC reveals ongoing paranoia, AH's. - Time Spent With Patient Time Spent With Patient: 25" ICD10 Worksheet Patient Problems: Problems Problem Status Onset Psychosis Acute Acute psychosis Acute Anorexia Acute Bipolar disorder Acute Poor fluid intake Acute
[2018-05-19] MEDS: LITHIUM CARBONATE ER 450 MG TAB PO SCH (19:23)
[2018-05-19] MEDS: OLANZapine DISINTEGR 10 MG TAB PO SCH (19:24)
[2018-05-19] MEDS: lamoTRIgine 100 MG TAB PO SCH (19:24)
--- NOTE | 2018-05-20 11:21 | ASMTCMCOM ---
CM Note CM Note Notes: Pt. was pacing the hallways while meeting with CC. Pt. reports feeling "fine". Pt. stated he slept "fine". Pt. reports the food being "surprisingly good". Pt. stated he does not want to return to [facility] and asked that staff stop asking him this question. Pt. reports no issues with his current medications. Pt. stated he is "perfectly sane, don't need to be here". Pt. stated he wants to discharge and "live life". Pt. stated he is very active when not in the hospital. Pt. denied SI, HI, AVH and paranoia. Pt. presents as alert, calm, pacing, no eye contact, responding to internal stimuli, and more friendly adn talkative than previous meetings. Staff report pt. sleeping 4.5 hours and being medication compliant. Date Signed: 05/20/2018 11:15 AM Electronically Signed By:Reny Samuels
--- NOTE | 2018-05-20 15:04 | SOAPPROG ---
SOAP Progress Note Assessment/Plan: Assessment: Plan: 05/04/18 14:59 Psychosis/mood: Remains quite psychotic, agitated. Compliant with meds, maintaining adequate PO intake, sleeping reasonably. [facility], monitor. 05/05/18 17:48 Psychosis/Mood: Minimal improvement at this point. CCM. 05/06/18 22:12 Psychosis: REmains quiet ill. Compliant with meds. CCM. 05/09/18 11:03 Psychosis: No real change. Will check lithium level, titrate Lamictal to [address] to 300mg, and Zyprexa from 10mg to 15mg. Monitor. 05/10/18 12:41 Psychosis: Slow improvement. [facility]. Will reorder lithium level. 05/11/18 11:19 Psychosis: Remains compliant with treatment. CCM. 05/12/18 14:46 Psychosis: Slow improvement. Tolerating med titrations well. Insight and judgement remain very poor. CCM. 05/13/18 16:21 Psychosis: No change. CCM. Needs more time to respond as he has shown in the past. 05/16/18 16:08 Psychosis: Slow improvement. CCM. 05/17/18 16:44 Psychosis: Continued slow improvement. Remains very ill, gravely disabled. 05/18/18 13:22 Psychosis: Continued gradual improvement. Will CCM with increase in Lamictal to 300mg and lithium level in the am. Await meeting between Dr. Boudreaux and pt to determine d/c plan. 05/19/18 16:02 Psychosis: Slow improvement. CCM. 05/20/18 15:04 Psychosis: Continued slow improvement. Subjective: Pt seen, discussed with staff. Reports feeling "just fine, totally sane." Continues to pace halls, though no longer talking out loud. Compliant with meds. Grooming remains poor. Did not shower as he stated he would yesterday. Objective: Vital Signs Temp Pulse Resp BP Pulse Ox 36.4 C 113 H 16 122/85 H 99 05/14/18 06:00 05/14/18 06:00 05/14/18 06:00 05/14/18 06:00 05/14/18 06:00 - Time Spent With Patient Time Spent With Patient: 15" ICD10 Worksheet Patient Problems: Problems Problem Status Onset Psychosis Acute Acute psychosis Acute Anorexia Acute Bipolar disorder Acute Poor fluid intake Acute
[2018-05-20] MEDS: LITHIUM CARBONATE ER 450 MG TAB PO SCH (20:44)
[2018-05-20] MEDS: lamoTRIgine 100 MG TAB PO SCH (20:44)
[2018-05-20] MEDS: OLANZapine DISINTEGR 10 MG TAB PO SCH (20:44)
[2018-05-21] MEDS: OLANZapine DISINTEGR 10 MG TAB PO SCH (20:45)
[2018-05-21] MEDS: LITHIUM CARBONATE ER 450 MG TAB PO SCH (20:45)
[2018-05-21] MEDS: lamoTRIgine 100 MG TAB PO SCH (20:45)
--- NOTE | 2018-05-22 11:23 | SOAPPROG ---
SOAP Progress Note Assessment/Plan: Assessment: 43yo CM with Schizoaffective d/o, severe, recurrent with catatonia, multiple prior psych admissions 05/21/18 14:59 pt slept 5.5hr. pacing halls. not showering. not attending groups. on interview, disheveled, cooperative with brief interview, nml vol speech, decr eye contact, no abn invol mvmts noted, steady ambulation, pt reports feeling "fine...I shouldn'tt be here". affect blunted. tp guarded, poverty of content, denied AH/VH but noted responding to int stim on unit. "we don't talk to ourself" he was noted saying as paced down hallway. denied SI or thoughts to harm others. i/j poor/impaired reports sleeping "fine", taking meds, denied med s/e denied physical complaints PLAN: cont current meds Objective: Vital Signs Temp Pulse Resp BP Pulse Ox 36.4 C 113 H 16 122/85 H 99 05/14/18 06:00 05/14/18 06:00 05/14/18 06:00 05/14/18 06:00 05/14/18 06:00 - Time Spent With Patient Time Spent With Patient: 10min - Pending Discharge Pending Discharge Within 24 Hours: No Pending Discharge Within 48 Hours: No ICD10 Worksheet Patient Problems: Problems Problem Status Onset Psychosis Acute Acute psychosis Acute Anorexia Acute Bipolar disorder Acute Poor fluid intake Acute
--- NOTE | 2018-05-22 12:43 | ASMTCMCOM ---
CM Note CM Note Notes: Pt. was pacing the hallways while speaking with CC. Pt. reports feeling "fine". Pt. stated he slept "fine". Pt. reports eating well and not attending groups. Pt. reports no issues with his current medications. Pt. agreed to let CC find him a new psychiatrist as pt. no longer wants to work with [facility]. Pt. denied SI, HI, AVH and paranoia. Pt. presents as alert, pacing, responding to internal stimuli, no eye contact and needing to shower. Staff report pt. sleeping 3.75 hours and being medication complaint. Date Signed: 05/22/2018 12:42 PM Electronically Signed By:Reny Samuels
[2018-05-22] MEDS: LITHIUM CARBONATE ER 450 MG TAB PO SCH (21:07)
[2018-05-22] MEDS: OLANZapine DISINTEGR 10 MG TAB PO SCH (21:07)
[2018-05-22] MEDS: lamoTRIgine 100 MG TAB PO SCH (21:07)
--- NOTE | 2018-05-22 22:56 | SOAPPROG ---
SOAP Progress Note Assessment/Plan: Assessment: 43yo CM with Schizoaffective d/o, severe, recurrent with catatonia, multiple prior psych admissions 05/21/18 14:59 pt slept 5.5hr. pacing halls. not showering. not attending groups. on interview, disheveled, cooperative with brief interview, nml vol speech, decr eye contact, no abn invol mvmts noted, steady ambulation, pt reports feeling "fine...I shouldn'tt be here". affect blunted. tp guarded, poverty of content, denied AH/VH but noted responding to int stim on unit. "we don't talk to ourself" he was noted saying as paced down hallway. denied SI or thoughts to harm others. i/j poor/impaired reports sleeping "fine", taking meds, denied med s/e denied physical complaints PLAN: cont current meds 05/22/18 15:09 slept 4hr but took some naps still pacing halls, responding to internal stim. staff note pt seems more able to stop responding to IS and engage briefly including watching some TV, out for meals, doesn't attend groups on interview, unkempt, blunted affect, pt again reports feeling "fine" with no physical complaints. pacing halls "for exercise", denies feeling restless. denied AH/vh but seen often in milieu pacing and talking to self outloud. maintains behav control. PLAN: cont current meds, no changes monitor VS. noted tachycardic yesterday Objective: Vital Signs Temp Pulse Resp BP Pulse Ox 36.3 C 76 14 123/81 H 97 05/22/18 12:25 05/22/18 12:25 05/22/18 12:25 05/22/18 12:25 05/22/18 12:25 Medications Generic Name Dose Route Start Last Admin Trade Name Freq PRN Reason Stop Dose Admin Lamotrigine 300 mg 05/18/18 12:12 05/22/18 21:07 Lamictal PO 10/30/18 20:59 300 mg HS TRINY [place] Carbonate 1,350 mg 05/11/18 21:00 05/22/18 21:07 Eskalith Cr PO 10/30/18 20:59 1,350 mg HS TRINY Olanzapine 10 mg 05/03/18 03:19 Olanzapine PO 10/30/18 03:18 Q4HRS PRN PSYCHOSIS, AGITATION Olanzapine 15 mg 05/09/18 11:05 05/22/18 21:07 Zyprexa Zydis PO 10/30/18 20:59 15 mg HS TRINY - Time Spent With Patient Time Spent With Patient: <10min - Pending Discharge Pending Discharge Within 24 Hours: No Pending Discharge Within 48 Hours: No ICD10 Worksheet Patient Problems: Problems Problem Status Onset Psychosis Acute Acute psychosis Acute Anorexia Acute Bipolar disorder Acute Poor fluid intake Acute
--- NOTE | 2018-05-23 14:19 | SOAPPROG ---
SOAP Progress Note Assessment/Plan: Assessment: Most recent notes from Dr. Diaz: Assessment: 43yo CM with Schizoaffective d/o, severe, recurrent with catatonia, multiple prior psych admissions 05/21/18 14:59 pt slept 5.5hr. pacing halls. not showering. not attending groups. on interview, disheveled, cooperative with brief interview, nml vol speech, decr eye contact, no abn invol mvmts noted, steady ambulation, pt reports feeling "fine...I shouldn'tt be here". affect blunted. tp guarded, poverty of content, denied AH/VH but noted responding to int stim on unit. "we don't talk to ourself" he was noted saying as paced down hallway. denied SI or thoughts to harm others. i/j poor/impaired reports sleeping "fine", taking meds, denied med s/e denied physical complaints PLAN: cont current meds 05/22/18 15:09 slept 4hr but took some naps still pacing halls, responding to internal stim. staff note pt seems more able to stop responding to IS and engage briefly including watching some TV, out for meals, doesn't attend groups on interview, unkempt, blunted affect, pt again reports feeling "fine" with no physical complaints. pacing halls "for exercise", denies feeling restless. denied AH/vh but seen often in milieu pacing and talking to self outloud. maintains behav control. PLAN: cont current meds, no changes monitor VS. noted tachycardic yesterday PLAN: 05/23/18 14:15 1. As noted by staff and Dr. Diaz over w/e, patient does appear to be making incremental improvements. He is sleeping more at night (7hrs last night), eating 100% of meals, and taking some breaks from his relentless pacing and talking to himself. 2. Patient still hasn't showered or washed his clothes. 3. Med compliant 4. No med changes at this time Subjective: Patient is still pacing the halls. Staff had to give him another pair of socks b /c he's worn holes in the pair he has now. Staff report patient will occassionally take a break from pacing and watch TV or lie down in bed. In the past when MD has approached patient and attempted to engage him in conversation , he has refused to make eye contact and kept walking down lopez. Today, however , patient made eye contact and responded to MD's initial question, "how are you? ," with "fine," and then kept pacing and mumbling to himself. Objective: Vital Signs Temp Pulse Resp BP Pulse Ox 36.3 C 76 14 123/81 H 97 05/22/18 12:25 05/22/18 12:25 05/22/18 12:25 05/22/18 12:25 05/22/18 12:25 MSE: Affect: Blunted Mood: "Fine" TP: Disorganized, illogical TC: Denies any SI/HI Perception: Denies AH/VH, but constantly overheard talking out loud, frequently mumbling while pacing Insight/Judgment: Impaired - Time Spent With Patient Time Spent With Patient: 15" - Pending Discharge Pending Discharge Within 24 Hours: No Pending Discharge Within 48 Hours: No ICD10 Worksheet Patient Problems: Problems Problem Status Onset Psychosis Acute Acute psychosis Acute Anorexia Acute Bipolar disorder Acute Poor fluid intake Acute
[2018-05-23] MEDS: lamoTRIgine 100 MG TAB PO SCH (20:31)
[2018-05-23] MEDS: OLANZapine DISINTEGR 10 MG TAB PO SCH (20:32)
[2018-05-23] MEDS: LITHIUM CARBONATE ER 450 MG TAB PO SCH (20:32)
--- NOTE | 2018-05-24 14:15 | SOAPPROG ---
SOAP Progress Note Assessment/Plan: Assessment: Plan: 05/04/18 14:59 Psychosis/mood: Remains quite psychotic, agitated. Compliant with meds, maintaining adequate PO intake, sleeping reasonably. [facility], monitor. 05/05/18 17:48 Psychosis/Mood: Minimal improvement at this point. CCM. 05/06/18 22:12 Psychosis: REmains quiet ill. Compliant with meds. CCM. 05/09/18 11:03 Psychosis: No real change. Will check lithium level, titrate Lamictal to [address] to 300mg, and Zyprexa from 10mg to 15mg. Monitor. 05/10/18 12:41 Psychosis: Slow improvement. CCM. Will reorder lithium level. 05/11/18 11:19 Psychosis: Remains compliant with treatment. CCM. 05/12/18 14:46 Psychosis: Slow improvement. Tolerating med titrations well. Insight and judgement remain very poor. CCM. 05/13/18 16:21 Psychosis: No change. CCM. Needs more time to respond as he has shown in the past. 05/16/18 16:08 Psychosis: Slow improvement. CCM. 05/17/18 16:44 Psychosis: Continued slow improvement. Remains very ill, gravely disabled. 05/18/18 13:22 Psychosis: Continued gradual improvement. Will CCM with increase in Lamictal to 300mg and lithium level in the am. Await meeting between Dr. Boudreaux and pt to determine d/c plan. 05/19/18 16:02 Psychosis: Slow improvement. CCM. 05/20/18 15:04 Psychosis: Continued slow improvement. 05/24/18 14:15 Psychosis: No change. CCM. Subjective: Pt seen, discussed with staff. Reports feeling "fine." Still has not showered and his odor is becoming increasingly disruptive to the milieu. He paces intermittently, lying in bed at other times. Less RIS. Continues to eat well. Compliant with meds. Objective: Vital Signs Temp Pulse Resp BP Pulse Ox 36.3 C 76 14 123/81 H 97 05/22/18 12:25 05/22/18 12:25 05/22/18 12:25 05/22/18 12:25 05/22/18 12:25 MSE: Calm, coop. Affect is constricted, stable. Mood is "fine." TP is linear at times. TC reveals continued RIS, though less. Remains paranoid, especially in regards to parents and providers. - Time Spent With Patient Time Spent With Patient: 15" ICD10 Worksheet Patient Problems: Problems Problem Status Onset Psychosis Acute Acute psychosis Acute Anorexia Acute Bipolar disorder Acute Poor fluid intake Acute
[2018-05-24] MEDS: LITHIUM CARBONATE ER 450 MG TAB PO SCH (20:39)
[2018-05-24] MEDS: lamoTRIgine 100 MG TAB PO SCH (20:39)
[2018-05-24] MEDS: OLANZapine DISINTEGR 10 MG TAB PO SCH (20:39)
--- NOTE | 2018-05-25 12:07 | ASMTCMCOM ---
CM Note CM Note Notes: CC asked to check in with patient, and pt. stated "I'd rather not". Pt. presents as alert, pacing, no eye contact, and responding to internal stimuli. Staff report pt. sleeping 7.5 hours and is medication complaint. Date Signed: 05/25/2018 11:33 AM Electronically Signed By:Reny Samuels
--- NOTE | 2018-05-25 12:49 | SOAPPROG ---
SOAP Progress Note Assessment/Plan: Assessment: Plan: 05/04/18 14:59 Psychosis/mood: Remains quite psychotic, agitated. Compliant with meds, maintaining adequate PO intake, sleeping reasonably. [facility], monitor. 05/05/18 17:48 Psychosis/Mood: Minimal improvement at this point. CCM. 05/06/18 22:12 Psychosis: REmains quiet ill. Compliant with meds. CCM. 05/09/18 11:03 Psychosis: No real change. Will check lithium level, titrate Lamictal to [address] to 300mg, and Zyprexa from 10mg to 15mg. Monitor. 05/10/18 12:41 Psychosis: Slow improvement. CCM. Will reorder lithium level. 05/11/18 11:19 Psychosis: Remains compliant with treatment. CCM. 05/12/18 14:46 Psychosis: Slow improvement. Tolerating med titrations well. Insight and judgement remain very poor. CCM. 05/13/18 16:21 Psychosis: No change. CCM. Needs more time to respond as he has shown in the past. 05/16/18 16:08 Psychosis: Slow improvement. CCM. 05/17/18 16:44 Psychosis: Continued slow improvement. Remains very ill, gravely disabled. 05/18/18 13:22 Psychosis: Continued gradual improvement. Will CCM with increase in Lamictal to 300mg and lithium level in the am. Await meeting between Dr. Boudreaux and pt to determine d/c plan. 05/19/18 16:02 Psychosis: Slow improvement. CCM. 05/20/18 15:04 Psychosis: Continued slow improvement. 05/24/18 14:15 Psychosis: No change. CCM. 05/25/18 12:48 Psychosis: No change. CCM. Subjective: Pt seen, discussed with staff. Remains internally focused, paranoid. Speaks to me briefly, but appears more guarded. Focused only on demand for release from the hospital due to not having a mental illness. Remains compliant with meds. Objective: Vital Signs Temp Pulse Resp BP Pulse Ox 36.3 C 76 14 123/81 H 97 05/22/18 12:25 05/22/18 12:25 05/22/18 12:25 05/22/18 12:25 05/22/18 12:25 - Time Spent With Patient Time Spent With Patient: 15" ICD10 Worksheet Patient Problems: Problems Problem Status Onset Psychosis Acute Acute psychosis Acute Anorexia Acute Bipolar disorder Acute Poor fluid intake Acute
[2018-05-25] MEDS: LITHIUM CARBONATE ER 450 MG TAB PO SCH (19:47)
[2018-05-25] MEDS: lamoTRIgine 100 MG TAB PO SCH (19:47)
[2018-05-25] MEDS: OLANZapine DISINTEGR 10 MG TAB PO SCH (19:48)
[2018-05-26 06:50] VITALS: BP 121/65
[2018-05-26] MEDS: lamoTRIgine 100 MG TAB PO SCH (20:30)
[2018-05-26] MEDS: LITHIUM CARBONATE ER 450 MG TAB PO SCH (20:31)
[2018-05-26] MEDS: OLANZapine DISINTEGR 10 MG TAB PO SCH (20:31)
--- NOTE | 2018-05-26 21:02 | SOAPPROG ---
SOAP Progress Note Assessment/Plan: Assessment: Plan: 05/04/18 14:59 Psychosis/mood: Remains quite psychotic, agitated. Compliant with meds, maintaining adequate PO intake, sleeping reasonably. [facility], monitor. 05/05/18 17:48 Psychosis/Mood: Minimal improvement at this point. CCM. 05/06/18 22:12 Psychosis: REmains quiet ill. Compliant with meds. CCM. 05/09/18 11:03 Psychosis: No real change. Will check lithium level, titrate Lamictal to [address] to 300mg, and Zyprexa from 10mg to 15mg. Monitor. 05/10/18 12:41 Psychosis: Slow improvement. CCM. Will reorder lithium level. 05/11/18 11:19 Psychosis: Remains compliant with treatment. CCM. 05/12/18 14:46 Psychosis: Slow improvement. Tolerating med titrations well. Insight and judgement remain very poor. CCM. 05/13/18 16:21 Psychosis: No change. CCM. Needs more time to respond as he has shown in the past. 05/16/18 16:08 Psychosis: Slow improvement. CCM. 05/17/18 16:44 Psychosis: Continued slow improvement. Remains very ill, gravely disabled. 05/18/18 13:22 Psychosis: Continued gradual improvement. Will CCM with increase in Lamictal to 300mg and lithium level in the am. Await meeting between Dr. Boudreaux and pt to determine d/c plan. 05/19/18 16:02 Psychosis: Slow improvement. CCM. 05/20/18 15:04 Psychosis: Continued slow improvement. 05/24/18 14:15 Psychosis: No change. CCM. 05/25/18 12:48 Psychosis: No change. CCM. 05/26/18 21:02 Psychosis: Remains psychotic. DCCM. Subjective: Pt seen, discussed with staff. Pt interviewed alone and in Treatment Team meeting. Becomes angry when anyone refers to his mental illness. Denies the existence of such. States, "I am not mentally ill, you are just evil" Compliant with meds. Refuses to allow team to schedule follow-up appointments. Objective: Vital Signs Temp Pulse Resp BP Pulse Ox 36.3 C 94 16 121/65 H 95 05/22/18 12:25 05/26/18 06:00 05/26/18 06:00 05/26/18 06:00 05/26/18 06:00 MSE: Disheveled, malodorous. Affect is flat. Mood is "fine," Tp is disorganized. TC reveals ongoing paranoid and hyperreligious delusions, prominent AH's inc: CAH. - Time Spent With Patient Time Spent With Patient: 25" ICD10 Worksheet Patient Problems: Problems Problem Status Onset Psychosis Acute Acute psychosis Acute Anorexia Acute Bipolar disorder Acute Poor fluid intake Acute
--- NOTE | 2018-05-27 14:11 | ASMTCMCOM ---
CM Note CM Note Notes: Attempted to engage with patient today. He was resistant to discussion and observed continued pacing, disorganized speech and evident response to internal stimuli Date Signed: 05/27/2018 02:10 PM Electronically Signed By:Diane Storey
--- NOTE | 2018-05-27 16:04 | SOAPPROG ---
SOAP Progress Note Assessment/Plan: Assessment: Plan: 05/04/18 14:59 Psychosis/mood: Remains quite psychotic, agitated. Compliant with meds, maintaining adequate PO intake, sleeping reasonably. [facility], monitor. 05/05/18 17:48 Psychosis/Mood: Minimal improvement at this point. CCM. 05/06/18 22:12 Psychosis: REmains quiet ill. Compliant with meds. CCM. 05/09/18 11:03 Psychosis: No real change. Will check lithium level, titrate Lamictal to [address] to 300mg, and Zyprexa from 10mg to 15mg. Monitor. 05/10/18 12:41 Psychosis: Slow improvement. CCM. Will reorder lithium level. 05/11/18 11:19 Psychosis: Remains compliant with treatment. CCM. 05/12/18 14:46 Psychosis: Slow improvement. Tolerating med titrations well. Insight and judgement remain very poor. CCM. 05/13/18 16:21 Psychosis: No change. CCM. Needs more time to respond as he has shown in the past. 05/16/18 16:08 Psychosis: Slow improvement. CCM. 05/17/18 16:44 Psychosis: Continued slow improvement. Remains very ill, gravely disabled. 05/18/18 13:22 Psychosis: Continued gradual improvement. Will CCM with increase in Lamictal to 300mg and lithium level in the am. Await meeting between Dr. Boudreaux and pt to determine d/c plan. 05/19/18 16:02 Psychosis: Slow improvement. CCM. 05/20/18 15:04 Psychosis: Continued slow improvement. 05/24/18 14:15 Psychosis: No change. CCM. 05/25/18 12:48 Psychosis: No change. CCM. 05/26/18 21:02 Psychosis: Remains psychotic. DCCM. 05/27/18 16:04 Psychosis: Remains psychotic. CCM. Subjective: Pt seen, discussed with staff. Remains isolative, internally focused. Pacing halls, mumbling to himself. Disheveled, malodorous. Compliant with meds. Objective: Vital Signs Temp Pulse Resp BP Pulse Ox 36.3 C 94 16 121/65 H 95 05/22/18 12:25 05/26/18 06:00 05/26/18 06:00 05/26/18 06:00 05/26/18 06:00 MSE: Moderately agitated, pacing. Initially refuses to speak to me. Affect is constricted, stable. Mood is "bad." TP is abbreviated, linear at times, predominantly disorganized. - Time Spent With Patient Time Spent With Patient: 15" ICD10 Worksheet Patient Problems: Problems Problem Status Onset Psychosis Acute Acute psychosis Acute Anorexia Acute Bipolar disorder Acute Poor fluid intake Acute
[2018-05-27] MEDS: LITHIUM CARBONATE ER 450 MG TAB PO SCH (20:28)
[2018-05-27] MEDS: lamoTRIgine 100 MG TAB PO SCH (20:29)
[2018-05-27] MEDS: OLANZapine DISINTEGR 10 MG TAB PO SCH (20:29)
--- NOTE | 2018-05-28 15:54 | SOAPPROG ---
SOAP Progress Note Assessment/Plan: Assessment: Per Dr. Montague's notes: 05/24/18 14:15 Psychosis: No change. CCM. 05/25/18 12:48 Psychosis: No change. CCM. 05/26/18 21:02 Psychosis: Remains psychotic. DCC. 05/27/18 16:04 Psychosis: Remains psychotic. CCM. Dr. Lara's last note: PLAN: 05/23/18 14:15 1. As noted by staff and Dr. Diaz over w/e, patient does appear to be making incremental improvements. He is sleeping more at night (7hrs last night), eating 100% of meals, and taking some breaks from his relentless pacing and talking to himself. 2. Patient still hasn't showered or washed his clothes. 3. Med compliant 4. No med changes at this time Current PLAN: 05/28/18 15:51 1. No significant change. 2. Patient is eating 100% of meals and drinking adequate fluids. 3. [facility] - now on Lamictal, [place] and Olanzapine Subjective: Patient pacing in halls mumbling and talking out loud. He doesn't make eye contact when approached by MD and keeps on walking. Staff report patient insisted he doesn't have schizoaffective disorder when he attended tx team meeting this week. However, he is taking meds. Objective: Vital Signs Temp Pulse Resp BP Pulse Ox 36.3 C 94 16 121/65 H 95 05/22/18 12:25 05/26/18 06:00 05/26/18 06:00 05/26/18 06:00 05/26/18 06:00 MSE: Affect: Blunted Mood: "OK" TP: Disorganized, illogical TC: Delusional ( denies severe mental illness), denies any SI/HI Insight/Judgment: Impaired - Time Spent With Patient Time Spent With Patient: 15" - Pending Discharge Pending Discharge Within 24 Hours: No Pending Discharge Within 48 Hours: No ICD10 Worksheet Patient Problems: Problems Problem Status Onset Psychosis Acute Acute psychosis Acute Anorexia Acute Bipolar disorder Acute Poor fluid intake Acute
[2018-05-28] MEDS: OLANZapine DISINTEGR 10 MG TAB PO SCH (20:53)
[2018-05-28] MEDS: lamoTRIgine 100 MG TAB PO SCH (20:54)
[2018-05-28] MEDS: LITHIUM CARBONATE ER 450 MG TAB PO SCH (20:54)
--- NOTE | 2018-05-29 14:32 | ASMTCMCOM ---
CM Note CM Note Notes: CC attempted to meet with pt. Pt. stated "I'd rather not [meet]" and walked away. Pt. has been observed pacing less often and continuing to respond to internal stimuli but less often. Staff report pt. sleeping 10.5 hours, not attending groups, eating well and being medication complaint. Date Signed: 05/29/2018 02:31 PM Electronically Signed By:Reny Samuels
--- NOTE | 2018-05-29 15:43 | SOAPPROG ---
SOAP Progress Note Assessment/Plan: Assessment: Per Dr. Montague's notes: 05/24/18 14:15 Psychosis: No change. CCM. 05/25/18 12:48 Psychosis: No change. CCM. 05/26/18 21:02 Psychosis: Remains psychotic. DCC. 05/27/18 16:04 Psychosis: Remains psychotic. CCM. Dr. Lara's last note: PLAN: 05/23/18 14:15 1. As noted by staff and Dr. Diaz over w/e, patient does appear to be making incremental improvements. He is sleeping more at night (7hrs last night), eating 100% of meals, and taking some breaks from his relentless pacing and talking to himself. 2. Patient still hasn't showered or washed his clothes. 3. Med compliant 4. No med changes at this time Current PLAN: 05/28/18 15:51 1. No significant change. 2. Patient is eating 100% of meals and drinking adequate fluids. 3. CCM - now on Lamictal, [place] and Olanzapine 05/29/18 15:40 1. No change 2. CCM Subjective: Patient continues to pace halls, talking out loud to himself. He is still not attending to his ADLs, not bathing, not changing clothes. He slept 10.5 hrs last night, and ate 100% of breakfast and lunch. Objective: Vital Signs Temp Pulse Resp BP Pulse Ox 36.3 C 94 16 121/65 H 95 05/22/18 12:25 05/26/18 06:00 05/26/18 06:00 05/26/18 06:00 05/26/18 06:00 MSE: Affect: Blunted Mood: No response TP: Paucity of goal-directed speech, mumbling and talking to himself constantly TC: Denies any SI/HI, this is one of the only questions to which patient will provide direct response, when asked about SI/HI, he responds, "No" Insight/Judgment: Impaired - Time Spent With Patient Time Spent With Patient: 15" - Pending Discharge Pending Discharge Within 24 Hours: No Pending Discharge Within 48 Hours: No ICD10 Worksheet Patient Problems: Problems Problem Status Onset Psychosis Acute Acute psychosis Acute Anorexia Acute Bipolar disorder Acute Poor fluid intake Acute
[2018-05-29] MEDS: LITHIUM CARBONATE ER 450 MG TAB PO SCH (19:38)
[2018-05-29] MEDS: lamoTRIgine 100 MG TAB PO SCH (19:39)
[2018-05-29] MEDS: OLANZapine DISINTEGR 10 MG TAB PO SCH (19:39)
--- NOTE | 2018-05-30 15:10 | ASMTCMCOM ---
CM Note CM Note Notes: Client continues to be medication compliant; however, states "I do not want to speak to you," when this automotive service writer approaches client to check in. Pt remains pacing back and forth on the unit and does not participate in groups.* Date Signed: 05/30/2018 03:09 PM Electronically Signed By:Victor Hugo Bangura
--- NOTE | 2018-05-30 16:05 | SOAPPROG ---
SOAP Progress Note Assessment/Plan: Assessment: Plan: 05/04/18 14:59 Psychosis/mood: Remains quite psychotic, agitated. Compliant with meds, maintaining adequate PO intake, sleeping reasonably. [facility], monitor. 05/05/18 17:48 Psychosis/Mood: Minimal improvement at this point. CCM. 05/06/18 22:12 Psychosis: REmains quiet ill. Compliant with meds. CCM. 05/09/18 11:03 Psychosis: No real change. Will check lithium level, titrate Lamictal to 250mg [address] to 300mg, and Zyprexa from 10mg to 15mg. Monitor. 05/10/18 12:41 Psychosis: Slow improvement. [facility]. Will reorder lithium level. 05/11/18 11:19 Psychosis: Remains compliant with treatment. CCM. 05/12/18 14:46 Psychosis: Slow improvement. Tolerating med titrations well. Insight and judgement remain very poor. CCM. 05/13/18 16:21 Psychosis: No change. CCM. Needs more time to respond as he has shown in the past. 05/16/18 16:08 Psychosis: Slow improvement. CCM. 05/17/18 16:44 Psychosis: Continued slow improvement. Remains very ill, gravely disabled. 05/18/18 13:22 Psychosis: Continued gradual improvement. Will CCM with increase in Lamictal to 300mg and lithium level in the am. Await meeting between Dr. Boudreaux and pt to determine d/c plan. 05/19/18 16:02 Psychosis: Slow improvement. CCM. 05/20/18 15:04 Psychosis: Continued slow improvement. 05/24/18 14:15 Psychosis: No change. CCM. 05/25/18 12:48 Psychosis: No change. CCM. 05/26/18 21:02 Psychosis: Remains psychotic. [facility]. 05/27/18 16:04 Psychosis: Remains psychotic. [facility]. 05/30/18 16:05 Psychosis: No change. WIll consider titration of meds though he is on much higher doses than he was prior to admission during his period of stability. Subjective: Pt seen, discussed with staff, chart reviewed. Dr. Lara's check-in indicates loss of some functional ability since last week. I also note that he is less spontaneous, more internally focused. Unable to answer questions re: treatment or specific health needs. Continues to instead state that he is "perfectly sane " and demand d/c to home alone, without follow-up. Objective: Vital Signs Temp Pulse Resp BP Pulse Ox 36.3 C 94 16 121/65 H 95 05/22/18 12:25 05/26/18 06:00 05/26/18 06:00 05/26/18 06:00 05/26/18 06:00 MSE: Disheveled, malodorous. Affect is blunted, stable. Mood is "fine." TP is linear for brief periods, then derails. TC reveals continued internal focus with CAH's. - Time Spent With Patient Time Spent With Patient: 15" ICD10 Worksheet Patient Problems: Problems Problem Status Onset Psychosis Acute Acute psychosis Acute Anorexia Acute Bipolar disorder Acute Poor fluid intake Acute
[2018-05-30] MEDS: lamoTRIgine 100 MG TAB PO SCH (21:00)
[2018-05-30] MEDS: OLANZapine DISINTEGR 10 MG TAB PO SCH (21:00)
[2018-05-30] MEDS: LITHIUM CARBONATE ER 450 MG TAB PO SCH (21:00)
--- NOTE | 2018-05-31 17:39 | SOAPPROG ---
SOAP Progress Note Assessment/Plan: Assessment: Plan: 05/04/18 14:59 Psychosis/mood: Remains quite psychotic, agitated. Compliant with meds, maintaining adequate PO intake, sleeping reasonably. [facility], monitor. 05/05/18 17:48 Psychosis/Mood: Minimal improvement at this point. CCM. 05/06/18 22:12 Psychosis: REmains quiet ill. Compliant with meds. CCM. 05/09/18 11:03 Psychosis: No real change. Will check lithium level, titrate Lamictal to [address] to 300mg, and Zyprexa from 10mg to 15mg. Monitor. 05/10/18 12:41 Psychosis: Slow improvement. CCM. Will reorder lithium level. 05/11/18 11:19 Psychosis: Remains compliant with treatment. CCM. 05/12/18 14:46 Psychosis: Slow improvement. Tolerating med titrations well. Insight and judgement remain very poor. CCM. 05/13/18 16:21 Psychosis: No change. CCM. Needs more time to respond as he has shown in the past. 05/16/18 16:08 Psychosis: Slow improvement. CCM. 05/17/18 16:44 Psychosis: Continued slow improvement. Remains very ill, gravely disabled. 05/18/18 13:22 Psychosis: Continued gradual improvement. Will CCM with increase in Lamictal to 300mg and lithium level in the am. Await meeting between Dr. Boudreaux and pt to determine d/c plan. 05/19/18 16:02 Psychosis: Slow improvement. CCM. 05/20/18 15:04 Psychosis: Continued slow improvement. 05/24/18 14:15 Psychosis: No change. CCM. 05/25/18 12:48 Psychosis: No change. CCM. 05/26/18 21:02 Psychosis: Remains psychotic. [facility]. 05/27/18 16:04 Psychosis: Remains psychotic. CCM. 05/30/18 16:05 Psychosis: No change. WIll consider titration of meds though he is on much higher doses than he was prior to admission during his period of stability. 05/31/18 17:39 Psychosis: No change. Will CCM. Subjective: Pt seen, discussed with staff. Case discussed in Treatment Team meeting. He remains essentially the same. Compliant with meds, though minimally interactive. Continues to pace. Remains internally focused, though less RIS. Eating and drinking adequately. Objective: Vital Signs Temp Pulse Resp BP Pulse Ox 36.3 C 94 16 121/65 H 95 05/22/18 12:25 05/26/18 06:00 05/26/18 06:00 05/26/18 06:00 05/26/18 06:00 MSE: Moderately agitated, pacing. Does not make eye contact or answer greetings or questions. Affect is constricted, stable. Mood is not stated. TP is not assessed. Mumbling to self. - Time Spent With Patient Time Spent With Patient: 15" ICD10 Worksheet Patient Problems: Problems Problem Status Onset Psychosis Acute Acute psychosis Acute Anorexia Acute Bipolar disorder Acute Poor fluid intake Acute
[2018-05-31] MEDS: OLANZapine DISINTEGR 10 MG TAB PO SCH (20:22)
[2018-05-31] MEDS: LITHIUM CARBONATE ER 450 MG TAB PO SCH (20:22)
[2018-05-31] MEDS: lamoTRIgine 100 MG TAB PO SCH (20:23)
--- NOTE | 2018-06-01 11:59 | ASMTCMCOM ---
CM Note CM Note Notes: The patient refused to meet with CC. He stated, "I'm doing fine. I don't want to talk to you about it." Date Signed: 06/01/2018 11:58 AM Electronically Signed By:Rafia Echavarria
--- NOTE | 2018-06-01 13:19 | SOAPPROG ---
SOAP Progress Note Assessment/Plan: Assessment: Plan: 05/04/18 14:59 Psychosis/mood: Remains quite psychotic, agitated. Compliant with meds, maintaining adequate PO intake, sleeping reasonably. [facility], monitor. 05/05/18 17:48 Psychosis/Mood: Minimal improvement at this point. CCM. 05/06/18 22:12 Psychosis: REmains quiet ill. Compliant with meds. CCM. 05/09/18 11:03 Psychosis: No real change. Will check lithium level, titrate Lamictal to [address] to 300mg, and Zyprexa from 10mg to 15mg. Monitor. 05/10/18 12:41 Psychosis: Slow improvement. CCM. Will reorder lithium level. 05/11/18 11:19 Psychosis: Remains compliant with treatment. CCM. 05/12/18 14:46 Psychosis: Slow improvement. Tolerating med titrations well. Insight and judgement remain very poor. CCM. 05/13/18 16:21 Psychosis: No change. CCM. Needs more time to respond as he has shown in the past. 05/16/18 16:08 Psychosis: Slow improvement. CCM. 05/17/18 16:44 Psychosis: Continued slow improvement. Remains very ill, gravely disabled. 05/18/18 13:22 Psychosis: Continued gradual improvement. Will CCM with increase in Lamictal to 300mg and lithium level in the am. Await meeting between Dr. Boudreaux and pt to determine d/c plan. 05/19/18 16:02 Psychosis: Slow improvement. CCM. 05/20/18 15:04 Psychosis: Continued slow improvement. 05/24/18 14:15 Psychosis: No change. CCM. 05/25/18 12:48 Psychosis: No change. CCM. 05/26/18 21:02 Psychosis: Remains psychotic. [facility]. 05/27/18 16:04 Psychosis: Remains psychotic. CCM. 05/30/18 16:05 Psychosis: No change. WIll consider titration of meds though he is on much higher doses than he was prior to admission during his period of stability. 05/31/18 17:39 Psychosis: No change. Will CCM. 06/01/18 13:19 Psychosis: May be slowing down. Less agitated. CCM. Subjective: Pt seen, discussed with staff. Remains generally agitated, pacing, internally focused. Does not answer most questions. Does not engage with others or attend groups. Eating and drinking adequately. Objective: Vital Signs Temp Pulse Resp BP Pulse Ox 36.3 C 94 16 121/65 H 95 05/22/18 12:25 05/26/18 06:00 05/26/18 06:00 05/26/18 06:00 05/26/18 06:00 - Time Spent With Patient Time Spent With Patient: 15" ICD10 Worksheet Patient Problems: Problems Problem Status Onset Psychosis Acute Acute psychosis Acute Anorexia Acute Bipolar disorder Acute Poor fluid intake Acute
[2018-06-01] MEDS: OLANZapine DISINTEGR 10 MG TAB PO SCH (19:03)
[2018-06-01] MEDS: LITHIUM CARBONATE ER 450 MG TAB PO SCH (19:04)
[2018-06-01] MEDS: lamoTRIgine 100 MG TAB PO SCH (19:04)
--- NOTE | 2018-06-02 10:59 | SOAPPROG ---
SOAP Progress Note Assessment/Plan: Assessment: Plan: 05/04/18 14:59 Psychosis/mood: Remains quite psychotic, agitated. Compliant with meds, maintaining adequate PO intake, sleeping reasonably. [facility], monitor. 05/05/18 17:48 Psychosis/Mood: Minimal improvement at this point. CCM. 05/06/18 22:12 Psychosis: REmains quiet ill. Compliant with meds. CCM. 05/09/18 11:03 Psychosis: No real change. Will check lithium level, titrate Lamictal to [address] to 300mg, and Zyprexa from 10mg to 15mg. Monitor. 05/10/18 12:41 Psychosis: Slow improvement. [facility]. Will reorder lithium level. 05/11/18 11:19 Psychosis: Remains compliant with treatment. CCM. 05/12/18 14:46 Psychosis: Slow improvement. Tolerating med titrations well. Insight and judgement remain very poor. CCM. 05/13/18 16:21 Psychosis: No change. CCM. Needs more time to respond as he has shown in the past. 05/16/18 16:08 Psychosis: Slow improvement. CCM. 05/17/18 16:44 Psychosis: Continued slow improvement. Remains very ill, gravely disabled. 05/18/18 13:22 Psychosis: Continued gradual improvement. Will CCM with increase in Lamictal to 300mg and lithium level in the am. Await meeting between Dr. Boudreaux and pt to determine d/c plan. 05/19/18 16:02 Psychosis: Slow improvement. CCM. 05/20/18 15:04 Psychosis: Continued slow improvement. 05/24/18 14:15 Psychosis: No change. CCM. 05/25/18 12:48 Psychosis: No change. CCM. 05/26/18 21:02 Psychosis: Remains psychotic. [facility]. 05/27/18 16:04 Psychosis: Remains psychotic. CCM. 05/30/18 16:05 Psychosis: No change. WIll consider titration of meds though he is on much higher doses than he was prior to admission during his period of stability. 05/31/18 17:39 Psychosis: No change. Will CCM. 06/01/18 13:19 Psychosis: May be slowing down. Less agitated. CCM. 06/02/18 11:01 Psychosis: Slow improvement. He remains paranoid, rejecting established treatment resources and family supports. He is o/w able to logically and appropriately describe how he would provide for his basic needs. Will CCM, communicate with pt's parents and formulate d/c plan. Subjective: Pt seen, discussed with staff. Agreed to meet with Treatment Team. Able to articulate plan for d/c inc: how he will make money, access money, provide for food inc: shopping at [employer] by his home and using his debit card. He agrees to shower and acknowledges his poor hygiene. He identifies his parents as his only support but remains ambivalent about allowing them to help him as he believes his father is the one who called the police to do a welfare check. Remains compliant with meds. Objective: Vital Signs Temp Pulse Resp BP Pulse Ox 36.3 C 94 16 121/65 H 95 05/22/18 12:25 05/26/18 06:00 05/26/18 06:00 05/26/18 06:00 05/26/18 06:00 MSE: Moderately anxious, guarded, though interactive. Affect is constricted, stable. Mood is "fine." TP is linear, able to give goal-directed answers to questions. Able to state and spell the name of his PCP. TC reveals continued paranoia, especially directed at his treatment team and primary supports. - Time Spent With Patient Time Spent With Patient: 25" ICD10 Worksheet Patient Problems: Problems Problem Status Onset Psychosis Acute Acute psychosis Acute Anorexia Acute Bipolar disorder Acute Poor fluid intake Acute
--- NOTE | 2018-06-02 11:20 | ASMTCMCOM ---
CM Note CM Note Notes: Ct. is still pacing the halls talking to himself. However he presented with clearer affect and was able to carry a short conversation and be on task. D/C is planned for this weekend when parents arrive to [facility]. Garo agreed to have CC discuss discharge with parents. He is refusing care at [facility] and at [facility] but agreed to working with a psychiatrist in the community. He signed LUIS for Dr. Mehta and Dr. Conrad. CC left voicemails for both. Date Signed: 06/02/2018 11:19 AM Electronically Signed By:Cinthya Sutherland
--- NOTE | 2018-06-02 12:42 | ASMTBHDC ---
Notes Note: Notes: Ct. continue to refuse follow up care with [facility] or [facility]. He reported that he is willing to pay out of pocket to see a psychiatrist in the community. This worker called Dr. Mehta who was willing to speak with ct. During their phone call Dr. Mehta let ct. know that in order to schedule the appointment he will need to place a deposit toward the service (i.e., intake appointment). When ct. heard about it he declined services. Date Signed: 06/02/2018 12:41 PM Electronically Signed By:Cinthya Sutherland
[2018-06-02] MEDS: LITHIUM CARBONATE ER 450 MG TAB PO SCH (20:37)
[2018-06-02] MEDS: OLANZapine DISINTEGR 10 MG TAB PO SCH (20:38)
[2018-06-02] MEDS: lamoTRIgine 100 MG TAB PO SCH (20:38)
--- NOTE | 2018-06-03 12:55 | ASMTBHDC ---
Notes Note: Notes: CC left a VM for [facility] to find out if they are taking new referral. Another option that was suggested is Telehealth with a prescriber in [place]. Ct. agreed to this suggestion however the provider did not respond to inquiry calls. Ct. continues to refuse all previous options (I.e., [facility]. [facility] and Dr. Mehta). Ivan at [facility] called this CC to express his concerns about ct.. This CC also spoke with [facility] let him know that D/C has been postpone until F/U appointments can be scheduled. Date Signed: 06/03/2018 12:45 PM Electronically Signed By:Cinthya Sutherland
--- NOTE | 2018-06-03 16:31 | SOAPPROG ---
SOAP Progress Note Assessment/Plan: Assessment: Plan: 05/04/18 14:59 Psychosis/mood: Remains quite psychotic, agitated. Compliant with meds, maintaining adequate PO intake, sleeping reasonably. [facility], monitor. 05/05/18 17:48 Psychosis/Mood: Minimal improvement at this point. CCM. 05/06/18 22:12 Psychosis: REmains quiet ill. Compliant with meds. CCM. 05/09/18 11:03 Psychosis: No real change. Will check lithium level, titrate Lamictal to [address] to 300mg, and Zyprexa from 10mg to 15mg. Monitor. 05/10/18 12:41 Psychosis: Slow improvement. [facility]. Will reorder lithium level. 05/11/18 11:19 Psychosis: Remains compliant with treatment. CCM. 05/12/18 14:46 Psychosis: Slow improvement. Tolerating med titrations well. Insight and judgement remain very poor. CCM. 05/13/18 16:21 Psychosis: No change. CCM. Needs more time to respond as he has shown in the past. 05/16/18 16:08 Psychosis: Slow improvement. CCM. 05/17/18 16:44 Psychosis: Continued slow improvement. Remains very ill, gravely disabled. 05/18/18 13:22 Psychosis: Continued gradual improvement. Will CCM with increase in Lamictal to 300mg and lithium level in the am. Await meeting between Dr. Boudreaux and pt to determine d/c plan. 05/19/18 16:02 Psychosis: Slow improvement. CCM. 05/20/18 15:04 Psychosis: Continued slow improvement. 05/24/18 14:15 Psychosis: No change. CCM. 05/25/18 12:48 Psychosis: No change. CCM. 05/26/18 21:02 Psychosis: Remains psychotic. [facility]. 05/27/18 16:04 Psychosis: Remains psychotic. CCM. 05/30/18 16:05 Psychosis: No change. WIll consider titration of meds though he is on much higher doses than he was prior to admission during his period of stability. 05/31/18 17:39 Psychosis: No change. Will CCM. 06/01/18 13:19 Psychosis: May be slowing down. Less agitated. CCM. 06/02/18 11:01 Psychosis: Slow improvement. He remains paranoid, rejecting established treatment resources and family supports. He is o/w able to logically and appropriately describe how he would provide for his basic needs. Will CCM, communicate with pt's parents and formulate d/c plan. 06/03/18 16:31 Psychosis: Continued slow improvement. Will CCM. No d/c possible until there is a reasonable f/u plan in place. Subjective: Pt seen, discussed with staff. Reports being ready to leave hospital but refuses every referral for outpatient treatment. Unwilling to pay out of pocket for care. Continues to refuse to return to [facility]. I discussed the case with Dr. Morfin who states they can assign him to a different psychiatrist and therapist if he wants. He declines this. His parents are visiting tomorrow. Objective: Vital Signs Temp Pulse Resp BP Pulse Ox 36.3 C 94 16 121/65 H 95 05/22/18 12:25 05/26/18 06:00 05/26/18 06:00 05/26/18 06:00 05/26/18 06:00 - Time Spent With Patient Time Spent With Patient: 15" ICD10 Worksheet Patient Problems: Problems Problem Status Onset Psychosis Acute Acute psychosis Acute Anorexia Acute Bipolar disorder Acute Poor fluid intake Acute
[2018-06-03] MEDS: lamoTRIgine 100 MG TAB PO SCH (20:53)
[2018-06-03] MEDS: LITHIUM CARBONATE ER 450 MG TAB PO SCH (20:53)
[2018-06-03] MEDS: OLANZapine DISINTEGR 10 MG TAB PO SCH (20:54)
--- NOTE | 2018-06-04 07:51 | SOAPPROG ---
SOAP Progress Note Assessment/Plan: Assessment: 43yo CM with Schizoaffective d/o, severe, recurrent with catatonia, multiple prior psych admissions per parents, hx of prolonged recompensation 06/04/18 14:59 pt slept 10.5hr. pacing halls. not showering. not attending groups. talking to self in hallways reports sleeping "fine", has been taking meds, denied med s/e, doesn't feel he needs meds nor to be in hospital denied physical complaints angry that his parents visited unit, as they had a stopover in [place] en route home parents briefly met with day care aide on interview, disheveled, cooperative with brief interview, nml vol speech, decr eye contact, steady ambulation, mood "fine", affect blunted, and seemed irritated with attempt to interview. tp guarded, poverty of content, denied AH/ VH but +RIS/talking to self when pacing on unit. denied SI. i/j poor/impaired. PLAN: cont current meds ck Li level Objective: Vital Signs Temp Pulse Resp BP Pulse Ox 36.3 C 94 16 121/65 H 95 05/22/18 12:25 05/26/18 06:00 05/26/18 06:00 05/26/18 06:00 05/26/18 06:00 - Time Spent With Patient Time Spent With Patient: <15min - Pending Discharge Pending Discharge Within 24 Hours: No Pending Discharge Within 48 Hours: No ICD10 Worksheet Patient Problems: Problems Problem Status Onset Psychosis Acute Acute psychosis Acute Anorexia Acute Bipolar disorder Acute Poor fluid intake Acute
--- NOTE | 2018-06-04 15:43 | ASMTBHFAM ---
Notes Note: Notes: CC attempted to meet with pt. Pt. stated "I'd rather not" when asked to speak to CC. CC met with pt's parents (POC), Bienvenido and Lian ([phone]). POC stated pt's baseline includes "little bit of pacing", animated, and not talking to God. POC state pt. loves classical music and is very active with hiking and walking. POC stated this is the pt's 5th hospitalization, adding this is the longest he has been out of the hospital since his first episode. POC stated pt. is thoughtful with his family, kind and is very violent. POC stated pt is very angry with them right now, adding pt. believes it is their fault for his hospitalization. POC stated pt almost never uses substances and hates THC. POC stated pt. setup "fail safes" for himself when he was not in an episode. POC stated pt's typical time in the hospital is 35 days. POC stated they want pt. to return to [facility], but are willing to pay for any kind of provider. POC stated there is a certification at [facility] if needed. POC stated pt. is about a 5/10 with 10 being pt is fully at his baseline. POC stated they are currently on a layover and will be flying home to [place] tomorrow. Pt. was observed telling his parents to "go home" and "please leave" as they were leaving the unit. Date Signed: 06/04/2018 03:42 PM Electronically Signed By:Reny Samuels
[2018-06-04] MEDS: LITHIUM CARBONATE ER 450 MG TAB PO SCH (18:03)
[2018-06-04] MEDS: lamoTRIgine 100 MG TAB PO SCH (20:47)
[2018-06-04] MEDS: OLANZapine DISINTEGR 10 MG TAB PO SCH (20:47)
--- NOTE | 2018-06-05 12:48 | ASMTCMCOM ---
CM Note CM Note Notes: Pt. was pacing the halls when CC attempted to meet. Pt. reports not wanting to work with [facility], but will to see any other provider. Pt. ended the conversation by walking away from CC. Pt. presents as alert, responding to internal stimuli, pacing, malodorous, guarded, and only making eye contact for a few seconds. Staff report pt. sleeping 11.75 hours, being medication compliant, and poor ADLs. Pt's father stated yesterday, the pt doesn't look ready to discharge and care for himself. Date Signed: 06/05/2018 12:47 PM Electronically Signed By:Reny Samuels
--- NOTE | 2018-06-05 17:58 | SOAPPROG ---
SOAP Progress Note Assessment/Plan: Assessment: 43yo CM with Schizoaffective d/o, severe, recurrent with catatonia, multiple prior psych admissions per parents, hx of prolonged recompensation 06/04/18 14:59 pt slept 10.5hr. pacing halls. not showering. not attending groups. talking to self in hallways reports sleeping "fine", has been taking meds, denied med s/e, doesn't feel he needs meds nor to be in hospital denied physical complaints angry that his parents visited unit, as they had a stopover in [place] en route home parents briefly met with tire care manager on interview, disheveled, cooperative with brief interview, nml vol speech, decr eye contact, steady ambulation, mood "fine", affect blunted, and seemed irritated with attempt to interview. tp guarded, poverty of content, denied AH/ VH but +RIS/talking to self when pacing on unit. denied SI. i/j poor/impaired. PLAN: cont current meds ck Li level 06/05/18 17:49 slept 12hr. not showering. still talking to self while pacing halls. pt reports having nothing to talk about. doesn't feel he needs to be here. states "I already showered" when asked, altho does not appear to have done so anytime recently. thin, CM, disheveled. unshaven. decr ec, often looking down as walks halls. walked with patient briefly who did not otherwise want to be interviewed. responds "fine" to sleep, appetite, mood. seems somewhat irritable. denied noted s/e to meds, +mild intention tremor BUE noted on brief exam. denies feeling internally restless with need to move. states pacing halls "for exercise becase the alternative is staying in bed all day". still talking to self when pacing. "are we done?" and doesn't want to engage in any further interview. PLAN: Noted Li+ 1.5. checked to determine whether any room for dose adjustment. slight intention tremor which pt reports has not noticed/bothered him. no other sxs of Li toxicity Hx of slow recompensation, parents report about 2 months typically once back on meds. Has never been on Clozaril, they stated. Could consider. Not sure if Abilify Maintenna has been tried in past, gerald with his hx of n/c and hx of requiring COM and SANCHES. add TSH to labs already drawn. noted >5 in 10/2017 Objective: Vital Signs Temp Pulse Resp BP Pulse Ox 36.3 C 94 16 121/65 H 95 05/22/18 12:25 05/26/18 06:00 05/26/18 06:00 05/26/18 06:00 05/26/18 06:00 Laboratory Results 06/05/18 06:30 - Time Spent With Patient Time Spent With Patient: <10min - Pending Discharge Pending Discharge Within 24 Hours: No Pending Discharge Within 48 Hours: No ICD10 Worksheet Patient Problems: Problems Problem Status Onset Psychosis Acute Acute psychosis Acute Anorexia Acute Bipolar disorder Acute Poor fluid intake Acute
[2018-06-05] MEDS: LITHIUM CARBONATE ER 450 MG TAB PO SCH (20:27)
[2018-06-05] MEDS: OLANZapine DISINTEGR 10 MG TAB PO SCH (20:27)
[2018-06-05] MEDS: lamoTRIgine 100 MG TAB PO SCH (20:28)
--- NOTE | 2018-06-06 11:26 | SOAPPROG ---
SOAP Progress Note Assessment/Plan: Assessment: Plan: 05/04/18 14:59 Psychosis/mood: Remains quite psychotic, agitated. Compliant with meds, maintaining adequate PO intake, sleeping reasonably. [facility], monitor. 05/05/18 17:48 Psychosis/Mood: Minimal improvement at this point. CCM. 05/06/18 22:12 Psychosis: REmains quiet ill. Compliant with meds. CCM. 05/09/18 11:03 Psychosis: No real change. Will check lithium level, titrate Lamictal to [address]mg [address] to 300mg, and Zyprexa from 10mg to 15mg. Monitor. 05/10/18 12:41 Psychosis: Slow improvement. [facility]. Will reorder lithium level. 05/11/18 11:19 Psychosis: Remains compliant with treatment. CCM. 05/12/18 14:46 Psychosis: Slow improvement. Tolerating med titrations well. Insight and judgement remain very poor. CCM. 05/13/18 16:21 Psychosis: No change. CCM. Needs more time to respond as he has shown in the past. 05/16/18 16:08 Psychosis: Slow improvement. CCM. 05/17/18 16:44 Psychosis: Continued slow improvement. Remains very ill, gravely disabled. 05/18/18 13:22 Psychosis: Continued gradual improvement. Will CCM with increase in Lamictal to 300mg and lithium level in the am. Await meeting between Dr. Boudreaux and pt to determine d/c plan. 05/19/18 16:02 Psychosis: Slow improvement. CCM. 05/20/18 15:04 Psychosis: Continued slow improvement. 05/24/18 14:15 Psychosis: No change. CCM. 05/25/18 12:48 Psychosis: No change. CCM. 05/26/18 21:02 Psychosis: Remains psychotic. [facility]. 05/27/18 16:04 Psychosis: Remains psychotic. CCM. 05/30/18 16:05 Psychosis: No change. WIll consider titration of meds though he is on much higher doses than he was prior to admission during his period of stability. 05/31/18 17:39 Psychosis: No change. Will CCM. 06/01/18 13:19 Psychosis: May be slowing down. Less agitated. CCM. 06/02/18 11:01 Psychosis: Slow improvement. He remains paranoid, rejecting established treatment resources and family supports. He is o/w able to logically and appropriately describe how he would provide for his basic needs. Will CCM, communicate with pt's parents and formulate d/c plan. 06/03/18 16:31 Psychosis: Continued slow improvement. Will CCM. No d/c possible until there is a reasonable f/u plan in place. 06/06/18 11:25 Psychosis: Incremental improvement though remains gravely disabled. CCM. Subjective: Pt seen, discussed with staff, chart reviewed. Remains agitated, pacing, internally focused. Parents visited over weekend, stated to MD that he was "5/ 10". They reportedly stated he is not able to care for himself in this state. Pt was angry with them, yelled at them and sent them away. Parents offered to pay for any step-down or outpatient services after d/c; pt refuses. Pt remains compliant with meds. Objective: Vital Signs Temp Pulse Resp BP Pulse Ox 36.3 C 94 16 121/65 H 95 05/22/18 12:25 05/26/18 06:00 05/26/18 06:00 05/26/18 06:00 05/26/18 06:00 Laboratory Results 06/05/18 06:30 MSE: Poorly groomed, malodorous. Affect is constricted, stable. Mood is "fine." TP is linear for brief periods. TC reveals internal preoccupation, AH' s, paranoia. - Time Spent With Patient Time Spent With Patient: 15" ICD10 Worksheet Patient Problems: Problems Problem Status Onset Psychosis Acute Acute psychosis Acute Anorexia Acute Bipolar disorder Acute Poor fluid intake Acute
--- NOTE | 2018-06-06 12:06 | ASMTBHDC ---
Notes Note: Notes: Pt. was laying in bed when CC approached. Pt. stated he understand he may have to pay out of pocket for his outpatient follow-up services. CC stated pt's parents had offered to pay for his follow-up appointments. CC asked if pt. would be willing to see Dr. Mehta and have his parents pay for this appointment, pt. stated "no". Pt. then rolled over and ended the conversation Pt. stated yesterday he is not willing to work with [facility]. Pt. presents as alert, guarded, somewhat disorganized in follow-up care plans, lacking eye contact, and not groomed. Staff report pt. sleeping 10.5 hours, pacing less, and being medication complaint. CC will continue to searching for outpatient providers, who take pt's insurance and who pt. is willing to see. Date Signed: 06/06/2018 12:06 PM Electronically Signed By:Reny Samuels
--- NOTE | 2018-06-06 12:42 | ASMTBHDC ---
Notes Note: Notes: Ivan from [facility] called for an update on pt. Ivan stated [facility] can hold the pt's certification there if pt. wants to discharge to [facility]. Ivan stated pt. previously signed a form allowing [facility] to enter his home when pt. decompensates. Date Signed: 06/06/2018 12:41 PM Electronically Signed By:Reny Samuels
[2018-06-06] MEDS: LITHIUM CARBONATE ER 300 MG TAB PO SCH (20:32)
[2018-06-06] MEDS: lamoTRIgine 100 MG TAB PO SCH (20:32)
[2018-06-06] MEDS: OLANZapine DISINTEGR 10 MG TAB PO SCH (20:32)
--- NOTE | 2018-06-07 17:14 | SOAPPROG ---
SOAP Progress Note Assessment/Plan: Assessment: Plan: 05/04/18 14:59 Psychosis/mood: Remains quite psychotic, agitated. Compliant with meds, maintaining adequate PO intake, sleeping reasonably. [facility], monitor. 05/05/18 17:48 Psychosis/Mood: Minimal improvement at this point. CCM. 05/06/18 22:12 Psychosis: REmains quiet ill. Compliant with meds. CCM. 05/09/18 11:03 Psychosis: No real change. Will check lithium level, titrate Lamictal to [address] to 300mg, and Zyprexa from 10mg to 15mg. Monitor. 05/10/18 12:41 Psychosis: Slow improvement. [facility]. Will reorder lithium level. 05/11/18 11:19 Psychosis: Remains compliant with treatment. CCM. 05/12/18 14:46 Psychosis: Slow improvement. Tolerating med titrations well. Insight and judgement remain very poor. CCM. 05/13/18 16:21 Psychosis: No change. CCM. Needs more time to respond as he has shown in the past. 05/16/18 16:08 Psychosis: Slow improvement. CCM. 05/17/18 16:44 Psychosis: Continued slow improvement. Remains very ill, gravely disabled. 05/18/18 13:22 Psychosis: Continued gradual improvement. Will CCM with increase in Lamictal to 300mg and lithium level in the am. Await meeting between Dr. Boudreaux and pt to determine d/c plan. 05/19/18 16:02 Psychosis: Slow improvement. CCM. 05/20/18 15:04 Psychosis: Continued slow improvement. 05/24/18 14:15 Psychosis: No change. CCM. 05/25/18 12:48 Psychosis: No change. CCM. 05/26/18 21:02 Psychosis: Remains psychotic. [facility]. 05/27/18 16:04 Psychosis: Remains psychotic. CCM. 05/30/18 16:05 Psychosis: No change. WIll consider titration of meds though he is on much higher doses than he was prior to admission during his period of stability. 05/31/18 17:39 Psychosis: No change. Will CCM. 06/01/18 13:19 Psychosis: May be slowing down. Less agitated. CCM. 06/02/18 11:01 Psychosis: Slow improvement. He remains paranoid, rejecting established treatment resources and family supports. He is o/w able to logically and appropriately describe how he would provide for his basic needs. Will CCM, communicate with pt's parents and formulate d/c plan. 06/03/18 16:31 Psychosis: Continued slow improvement. Will CCM. No d/c possible until there is a reasonable f/u plan in place. 06/06/18 11:25 Psychosis: Incremental improvement though remains gravely disabled. CCM. 06/07/18 17:14 Psychosis: Slow progress continues. CCM. Subjective: Pt seen, discussed with staff. Remains isolative, withdrawn, internally focused. Pacing halls when not in bed. Less prominent psychosis. Insists on private psychiatrist, though refuses to anything towards this and now refuses to allow parents to help either. I informed him again that he needs to demonstrate reasonable insight into the need for ongoing care and participate in d/c planning prior to leaving hospital. He responds negatively to this, stating, per usual, "I don't need to be here. I am perfectly sane." Continues to deny the existence of a mental illness. Objective: Vital Signs Temp Pulse Resp BP Pulse Ox 36.3 C 94 16 121/65 H 95 05/22/18 12:25 05/26/18 06:00 05/26/18 06:00 05/26/18 06:00 05/26/18 06:00 Laboratory Results 06/05/18 06:30 MSE: Poorly groomed, malodorous. Affect is constricted, hostile. Mood is "fine." TP is organized at times. TC reveals continued RIS, paranoia. - Time Spent With Patient Time Spent With Patient: 15" ICD10 Worksheet Patient Problems: Problems Problem Status Onset Psychosis Acute Acute psychosis Acute Anorexia Acute Bipolar disorder Acute Poor fluid intake Acute
[2018-06-07] MEDS: lamoTRIgine 100 MG TAB PO SCH (19:03)
[2018-06-07] MEDS: OLANZapine DISINTEGR 10 MG TAB PO SCH (19:03)
[2018-06-07] MEDS: LITHIUM CARBONATE ER 300 MG TAB PO SCH (19:03)
--- NOTE | 2018-06-08 15:53 | SOAPPROG ---
SOAP Progress Note Assessment/Plan: Assessment: Plan: 05/04/18 14:59 Psychosis/mood: Remains quite psychotic, agitated. Compliant with meds, maintaining adequate PO intake, sleeping reasonably. [facility], monitor. 05/05/18 17:48 Psychosis/Mood: Minimal improvement at this point. CCM. 05/06/18 22:12 Psychosis: REmains quiet ill. Compliant with meds. CCM. 05/09/18 11:03 Psychosis: No real change. Will check lithium level, titrate Lamictal to [address] to 300mg, and Zyprexa from 10mg to 15mg. Monitor. 05/10/18 12:41 Psychosis: Slow improvement. [facility]. Will reorder lithium level. 05/11/18 11:19 Psychosis: Remains compliant with treatment. CCM. 05/12/18 14:46 Psychosis: Slow improvement. Tolerating med titrations well. Insight and judgement remain very poor. CCM. 05/13/18 16:21 Psychosis: No change. CCM. Needs more time to respond as he has shown in the past. 05/16/18 16:08 Psychosis: Slow improvement. CCM. 05/17/18 16:44 Psychosis: Continued slow improvement. Remains very ill, gravely disabled. 05/18/18 13:22 Psychosis: Continued gradual improvement. Will CCM with increase in Lamictal to 300mg and lithium level in the am. Await meeting between Dr. Boudreaux and pt to determine d/c plan. 05/19/18 16:02 Psychosis: Slow improvement. CCM. 05/20/18 15:04 Psychosis: Continued slow improvement. 05/24/18 14:15 Psychosis: No change. CCM. 05/25/18 12:48 Psychosis: No change. CCM. 05/26/18 21:02 Psychosis: Remains psychotic. [facility]. 05/27/18 16:04 Psychosis: Remains psychotic. CCM. 05/30/18 16:05 Psychosis: No change. WIll consider titration of meds though he is on much higher doses than he was prior to admission during his period of stability. 05/31/18 17:39 Psychosis: No change. Will CCM. 06/01/18 13:19 Psychosis: May be slowing down. Less agitated. CCM. 06/02/18 11:01 Psychosis: Slow improvement. He remains paranoid, rejecting established treatment resources and family supports. He is o/w able to logically and appropriately describe how he would provide for his basic needs. Will CCM, communicate with pt's parents and formulate d/c plan. 06/03/18 16:31 Psychosis: Continued slow improvement. Will CCM. No d/c possible until there is a reasonable f/u plan in place. 06/06/18 11:25 Psychosis: Incremental improvement though remains gravely disabled. CCM. 06/07/18 17:14 Psychosis: Slow progress continues. CCM. 06/08/18 15:53 Psychosis: Continue improvement. CCM. Subjective: Pt seen, discussed with staff. Reports feeling "fine." REmains aloof, pacing, minimally interactive. Compliant with meds. Showered yesterday and allowed staff to wash his clothes. Objective: Vital Signs Temp Pulse Resp BP Pulse Ox 36.3 C 94 16 121/65 H 95 05/22/18 12:25 05/26/18 06:00 05/26/18 06:00 05/26/18 06:00 05/26/18 06:00 Laboratory Results 06/05/18 06:30 - Time Spent With Patient Time Spent With Patient: 15" ICD10 Worksheet Patient Problems: Problems Problem Status Onset Psychosis Acute Acute psychosis Acute Anorexia Acute Bipolar disorder Acute Poor fluid intake Acute
[2018-06-08] MEDS: OLANZapine DISINTEGR 10 MG TAB PO SCH (21:05)
[2018-06-08] MEDS: LITHIUM CARBONATE ER 300 MG TAB PO SCH (21:05)
[2018-06-08] MEDS: lamoTRIgine 100 MG TAB PO SCH (21:05)
--- NOTE | 2018-06-09 12:16 | ASMTBHFAM ---
Notes Note: Notes: This parts data writer spoke with Ivan [facility], and SKYLER Faria, separately. Both were updated on the patient's condition and current discharge planning. The patient participated in clinical team rounds; he requested a fourth option for providers and services in the community. He remains unwilling to return to [facility], neither his past/current treatment team nor new providers with the agency, [facility], nor a private psychiatrist in the community. The clinical team thoroughly discussed the provider options with the patient. Date Signed: 06/09/2018 12:15 PM Electronically Signed By:Rafia Echavarria
--- NOTE | 2018-06-09 16:17 | SOAPPROG ---
SOAP Progress Note Assessment/Plan: Assessment: Plan: 05/04/18 14:59 Psychosis/mood: Remains quite psychotic, agitated. Compliant with meds, maintaining adequate PO intake, sleeping reasonably. [facility], monitor. 05/05/18 17:48 Psychosis/Mood: Minimal improvement at this point. CCM. 05/06/18 22:12 Psychosis: REmains quiet ill. Compliant with meds. CCM. 05/09/18 11:03 Psychosis: No real change. Will check lithium level, titrate Lamictal to [address] to 300mg, and Zyprexa from 10mg to 15mg. Monitor. 05/10/18 12:41 Psychosis: Slow improvement. [facility]. Will reorder lithium level. 05/11/18 11:19 Psychosis: Remains compliant with treatment. CCM. 05/12/18 14:46 Psychosis: Slow improvement. Tolerating med titrations well. Insight and judgement remain very poor. CCM. 05/13/18 16:21 Psychosis: No change. CCM. Needs more time to respond as he has shown in the past. 05/16/18 16:08 Psychosis: Slow improvement. CCM. 05/17/18 16:44 Psychosis: Continued slow improvement. Remains very ill, gravely disabled. 05/18/18 13:22 Psychosis: Continued gradual improvement. Will CCM with increase in Lamictal to 300mg and lithium level in the am. Await meeting between Dr. Boudreaux and pt to determine d/c plan. 05/19/18 16:02 Psychosis: Slow improvement. CCM. 05/20/18 15:04 Psychosis: Continued slow improvement. 05/24/18 14:15 Psychosis: No change. CCM. 05/25/18 12:48 Psychosis: No change. CCM. 05/26/18 21:02 Psychosis: Remains psychotic. [facility]. 05/27/18 16:04 Psychosis: Remains psychotic. CCM. 05/30/18 16:05 Psychosis: No change. WIll consider titration of meds though he is on much higher doses than he was prior to admission during his period of stability. 05/31/18 17:39 Psychosis: No change. Will CCM. 06/01/18 13:19 Psychosis: May be slowing down. Less agitated. CCM. 06/02/18 11:01 Psychosis: Slow improvement. He remains paranoid, rejecting established treatment resources and family supports. He is o/w able to logically and appropriately describe how he would provide for his basic needs. Will CCM, communicate with pt's parents and formulate d/c plan. 06/03/18 16:31 Psychosis: Continued slow improvement. Will CCM. No d/c possible until there is a reasonable f/u plan in place. 06/06/18 11:25 Psychosis: Incremental improvement though remains gravely disabled. CCM. 06/07/18 17:14 Psychosis: Slow progress continues. CCM. 06/08/18 15:53 Psychosis: Continue improvement. CCM. 06/09/18 16:17 Psychosis: Continued gradual improvement. Will CCM, continue d/c planning. Subjective: Pt seen, discussed with staff, interviewed in Treatment Team meeting. He continues to refuse all d/c plans. States to team that he will see a different private psychiatrist in [place] if we can get him an appointment. Appropriately interactive with team. Able to tolerate moderate level of challenge by staff. States at one point, "I feel like you're giving me a hard time." He also states, "All I want is some help. With all the people who work here, someone should be able to get me an appointment." Objective: Vital Signs Temp Pulse Resp BP Pulse Ox 36.3 C 94 16 121/65 H 95 05/22/18 12:25 05/26/18 06:00 05/26/18 06:00 05/26/18 06:00 05/26/18 06:00 Laboratory Results 06/05/18 06:30 MSE: Better, but still poorly groomed. Affect is constricted, stable. Mood is "fine." TP linear for longer periods, able to discuss treatment. TC reveals continued paranoid thoughts. No RIS noted today. - Time Spent With Patient Time Spent With Patient: 25" ICD10 Worksheet Patient Problems: Problems Problem Status Onset Psychosis Acute Acute psychosis Acute Anorexia Acute Bipolar disorder Acute Poor fluid intake Acute
[2018-06-09] MEDS: LITHIUM CARBONATE ER 300 MG TAB PO SCH (19:58)
[2018-06-09] MEDS: OLANZapine DISINTEGR 10 MG TAB PO SCH (19:58)
[2018-06-09] MEDS: lamoTRIgine 100 MG TAB PO SCH (19:58)
--- NOTE | 2018-06-10 12:59 | ASMTBHDC ---
Notes Note: Notes: The patient was offered multiple options for outpatient providers upon discharge including his current OP team at [facility], a new team with [facility], [facility], and multiple private psychiatrists and nurse practitioners in the community. The patient has refused all of these options citing, timeliness, cost of services, and "not having a good feeling" about providers. The patient stated, "Can I have some time to think. I'll get back to you about what I decide." Date Signed: 06/10/2018 12:58 PM Electronically Signed By:Rafia Echavarria
[2018-06-10] MEDS: lamoTRIgine 100 MG TAB PO SCH (20:20)
[2018-06-10] MEDS: OLANZapine DISINTEGR 10 MG TAB PO SCH (20:20)
[2018-06-10] MEDS: LITHIUM CARBONATE ER 300 MG TAB PO SCH (20:20)
--- NOTE | 2018-06-11 07:56 | SOAPPROG ---
SOAP Progress Note Assessment/Plan: Assessment: Plan: 05/04/18 14:59 Psychosis/mood: Remains quite psychotic, agitated. Compliant with meds, maintaining adequate PO intake, sleeping reasonably. [facility], monitor. 05/05/18 17:48 Psychosis/Mood: Minimal improvement at this point. CCM. 05/06/18 22:12 Psychosis: REmains quiet ill. Compliant with meds. CCM. 05/09/18 11:03 Psychosis: No real change. Will check lithium level, titrate Lamictal to [address] to 300mg, and Zyprexa from 10mg to 15mg. Monitor. 05/10/18 12:41 Psychosis: Slow improvement. [facility]. Will reorder lithium level. 05/11/18 11:19 Psychosis: Remains compliant with treatment. CCM. 05/12/18 14:46 Psychosis: Slow improvement. Tolerating med titrations well. Insight and judgement remain very poor. CCM. 05/13/18 16:21 Psychosis: No change. CCM. Needs more time to respond as he has shown in the past. 05/16/18 16:08 Psychosis: Slow improvement. CCM. 05/17/18 16:44 Psychosis: Continued slow improvement. Remains very ill, gravely disabled. 05/18/18 13:22 Psychosis: Continued gradual improvement. Will CCM with increase in Lamictal to 300mg and lithium level in the am. Await meeting between Dr. Boudreaux and pt to determine d/c plan. 05/19/18 16:02 Psychosis: Slow improvement. CCM. 05/20/18 15:04 Psychosis: Continued slow improvement. 05/24/18 14:15 Psychosis: No change. CCM. 05/25/18 12:48 Psychosis: No change. CCM. 05/26/18 21:02 Psychosis: Remains psychotic. [facility]. 05/27/18 16:04 Psychosis: Remains psychotic. CCM. 05/30/18 16:05 Psychosis: No change. WIll consider titration of meds though he is on much higher doses than he was prior to admission during his period of stability. 05/31/18 17:39 Psychosis: No change. Will CCM. 06/01/18 13:19 Psychosis: May be slowing down. Less agitated. CCM. 06/02/18 11:01 Psychosis: Slow improvement. He remains paranoid, rejecting established treatment resources and family supports. He is o/w able to logically and appropriately describe how he would provide for his basic needs. Will CCM, communicate with pt's parents and formulate d/c plan. 06/03/18 16:31 Psychosis: Continued slow improvement. Will CCM. No d/c possible until there is a reasonable f/u plan in place. 06/06/18 11:25 Psychosis: Incremental improvement though remains gravely disabled. CCM. 06/07/18 17:14 Psychosis: Slow progress continues. CCM. 06/08/18 15:53 Psychosis: Continue improvement. CCM. 06/09/18 16:17 Psychosis: Continued gradual improvement. Will CCM, continue d/c planning. 06/11/18 07:55 Psychosis: No change in clinical status. CCM. Continue d/c planning. Subjective: LATE ENTRY FOR 05/11/18. Pt seen, discussed with staff. Remains internally focused, interacting little with others. Continues to pace, though less RIS. Compliant with meds. Objective: Vital Signs Temp Pulse Resp BP Pulse Ox 36.3 C 94 16 121/65 H 95 05/22/18 12:25 05/26/18 06:00 05/26/18 06:00 05/26/18 06:00 05/26/18 06:00 Laboratory Results 06/05/18 06:30 - Time Spent With Patient Time Spent With Patient: 15" ICD10 Worksheet Patient Problems: Problems Problem Status Onset Psychosis Acute Acute psychosis Acute Anorexia Acute Bipolar disorder Acute Poor fluid intake Acute
--- NOTE | 2018-06-11 14:57 | SOAPPROG ---
SOAP Progress Note Assessment/Plan: Assessment: Per Dr. Montague's notes: 06/06/18 11:25 Psychosis: Incremental improvement though remains gravely disabled. [facility]. 06/07/18 17:14 Psychosis: Slow progress continues. [facility]. 06/08/18 15:53 Psychosis: Continue improvement. [facility]. 06/09/18 16:17 Psychosis: Continued gradual improvement. Will [facility], continue d/c planning. 06/11/18 07:55 Psychosis: No change in clinical status. [facility]. Continue d/c planning. PLAN: 06/11/18 14:53 1. Much improved. Decreased pacing, mumbling and responding to internal stimuli. 2. Patient is more engaged with dispo planning. He argued with staff on Wednesday about his aftercare plan. He refused to f/u with [facility], [facility] and a private psychiatrist. He was not able to come up with a viable alternative. 3. [facility] Subjective: Patient pacing halls much less. He is also able to engage in conversation with staff with more spontaneity and fluency than earlier in his admission. He is still refusing all reasonable aftercare plans recommended by his primary treatment team, including refusing to see providers at [facility] where he has received effective treatment in the past. He also refused to see providers at [facility] or anyone in private practice through his insurance. Objective: Vital Signs Temp Pulse Resp BP Pulse Ox 36.3 C 94 16 121/65 H 95 05/22/18 12:25 05/26/18 06:00 05/26/18 06:00 05/26/18 06:00 05/26/18 06:00 Laboratory Results 06/05/18 06:30 MSE: Affect: Constricted Mood: "OK" TP: More linear and organized TC: Denies any SI/HI Insight/Judgment: Poor a/e/b refusing all aftercare treatment recommendations from inpatient MD and tx team - Time Spent With Patient Time Spent With Patient: 15" - Pending Discharge Pending Discharge Within 24 Hours: No Pending Discharge Within 48 Hours: No ICD10 Worksheet Patient Problems: Problems Problem Status Onset Psychosis Acute Acute psychosis Acute Anorexia Acute Bipolar disorder Acute Poor fluid intake Acute
[2018-06-11] MEDS: lamoTRIgine 100 MG TAB PO SCH (20:01)
[2018-06-11] MEDS: OLANZapine DISINTEGR 10 MG TAB PO SCH (20:01)
[2018-06-11] MEDS: LITHIUM CARBONATE ER 300 MG TAB PO SCH (20:01)
--- NOTE | 2018-06-12 09:50 | ASMTBHFAM ---
Notes Note: Notes: This designer writer spoke with Bienvenido Gutierrez. Bienvenido requested an update of Garo's treatment and presentation. This designer writer discussed the possible discharge options with the patient's family, who reiterated that the best possible outcome would be for Garo to return to [facility]. Bienvenido asked about the possibility of transferring the certification to [facility]. The patient reported that he wasn't sure how to work with the proposed providers, regarding timeliness due to being hospitalized. This designer writer reminded the patient of our previous discussion; reiterating that although the appointment would be made for the patient prior to his discharge, it will be scheduled for a time when he has available following discharge. The patient asked about the provider's approval and this designer writer reiterated that the care coordinators work as a team alongside the providers, who are aware of the discharge planning. The patient agreed to work with the outpatient nurse practitioner recommended and stated that he "hope it works out. I'm done talking to you now." Date Signed: 06/12/2018 09:50 AM Electronically Signed By:Rafia Echavarria
--- NOTE | 2018-06-12 13:19 | SOAPPROG ---
SOAP Progress Note Assessment/Plan: Assessment: Per Dr. Montague's notes: 06/06/18 11:25 Psychosis: Incremental improvement though remains gravely disabled. [facility]. 06/07/18 17:14 Psychosis: Slow progress continues. [facility]. 06/08/18 15:53 Psychosis: Continue improvement. CCM. 06/09/18 16:17 Psychosis: Continued gradual improvement. Will [facility], continue d/c planning. 06/11/18 07:55 Psychosis: No change in clinical status. [facility]. Continue d/c planning. PLAN: 06/11/18 14:53 1. Much improved. Decreased pacing, mumbling and responding to internal stimuli. 2. Patient is more engaged with dispo planning. He argued with staff on Wednesday about his aftercare plan. He refused to f/u with [facility], [facility] and a private psychiatrist. He was not able to come up with a viable alternative. 3. [facility] PLAN: 06/12/18 13:16 1. Patient took shower and put on clean shirt today. He looks much better groomed. 2. On Wednesday patient was pacing much less, however, last night and today, he has resumed pacing the halls. He is not talking to himself or out loud as much, though. 3. [facility] Subjective: Patient noted to be pacing in halls per her prior routine. He had decreased the amount of time he spent pacing on Wednesday and Wednesday. Yesterday he spent more time in his room lying in bed. However, today he is back to pacing. He did manage to shower and change clothes. Objective: Vital Signs Temp Pulse Resp BP Pulse Ox 36.3 C 94 16 121/65 H 95 05/22/18 12:25 05/26/18 06:00 05/26/18 06:00 05/26/18 06:00 05/26/18 06:00 Laboratory Results 06/05/18 06:30 MSE: Affect: Flat Mood: "OK" TP: Paucity TC: Impoverished Insight/Judgment : Poor a/e/b refusal to accept any f/u recommendations from tx team - Time Spent With Patient Time Spent With Patient: 15" - Pending Discharge Pending Discharge Within 24 Hours: No Pending Discharge Within 48 Hours: No ICD10 Worksheet Patient Problems: Problems Problem Status Onset Psychosis Acute Acute psychosis Acute Anorexia Acute Bipolar disorder Acute Poor fluid intake Acute
[2018-06-12] MEDS: OLANZapine DISINTEGR 10 MG TAB PO SCH (20:14)
[2018-06-12] MEDS: lamoTRIgine 100 MG TAB PO SCH (20:14)
[2018-06-12] MEDS: LITHIUM CARBONATE ER 300 MG TAB PO SCH (20:15)
--- NOTE | 2018-06-13 15:31 | SOAPPROG ---
SOAP Progress Note Assessment/Plan: Assessment: Plan: 05/04/18 14:59 Psychosis/mood: Remains quite psychotic, agitated. Compliant with meds, maintaining adequate PO intake, sleeping reasonably. [facility], monitor. 05/05/18 17:48 Psychosis/Mood: Minimal improvement at this point. CCM. 05/06/18 22:12 Psychosis: REmains quiet ill. Compliant with meds. CCM. 05/09/18 11:03 Psychosis: No real change. Will check lithium level, titrate Lamictal to [address] to 300mg, and Zyprexa from 10mg to 15mg. Monitor. 05/10/18 12:41 Psychosis: Slow improvement. [facility]. Will reorder lithium level. 05/11/18 11:19 Psychosis: Remains compliant with treatment. CCM. 05/12/18 14:46 Psychosis: Slow improvement. Tolerating med titrations well. Insight and judgement remain very poor. CCM. 05/13/18 16:21 Psychosis: No change. CCM. Needs more time to respond as he has shown in the past. 05/16/18 16:08 Psychosis: Slow improvement. CCM. 05/17/18 16:44 Psychosis: Continued slow improvement. Remains very ill, gravely disabled. 05/18/18 13:22 Psychosis: Continued gradual improvement. Will CCM with increase in Lamictal to 300mg and lithium level in the am. Await meeting between Dr. Boudreaux and pt to determine d/c plan. 05/19/18 16:02 Psychosis: Slow improvement. CCM. 05/20/18 15:04 Psychosis: Continued slow improvement. 05/24/18 14:15 Psychosis: No change. CCM. 05/25/18 12:48 Psychosis: No change. CCM. 05/26/18 21:02 Psychosis: Remains psychotic. [facility]. 05/27/18 16:04 Psychosis: Remains psychotic. CCM. 05/30/18 16:05 Psychosis: No change. WIll consider titration of meds though he is on much higher doses than he was prior to admission during his period of stability. 05/31/18 17:39 Psychosis: No change. Will CCM. 06/01/18 13:19 Psychosis: May be slowing down. Less agitated. CCM. 06/02/18 11:01 Psychosis: Slow improvement. He remains paranoid, rejecting established treatment resources and family supports. He is o/w able to logically and appropriately describe how he would provide for his basic needs. Will CCM, communicate with pt's parents and formulate d/c plan. 06/03/18 16:31 Psychosis: Continued slow improvement. Will CCM. No d/c possible until there is a reasonable f/u plan in place. 06/06/18 11:25 Psychosis: Incremental improvement though remains gravely disabled. CCM. 06/07/18 17:14 Psychosis: Slow progress continues. CCM. 06/08/18 15:53 Psychosis: Continue improvement. CCM. 06/09/18 16:17 Psychosis: Continued gradual improvement. Will CCM, continue d/c planning. 06/11/18 07:55 Psychosis: No change in clinical status. CCM. Continue d/c planning. 06/13/18 15:30 Psychosis: Seems to have reached a plateau. Unclear what would improve this except more time. He is refusing outpatient follow-up. Will CCM. Subjective: Pt seen, discussed with staff. Reports feeling "fine." Continues to want to leave hospital but continues to refuse each possible d/c plan. He typically states he "doesn't feel right" about potential outpatient providers. Objective: Vital Signs Temp Pulse Resp BP Pulse Ox 36.3 C 94 16 121/65 H 95 05/22/18 12:25 05/26/18 06:00 05/26/18 06:00 05/26/18 06:00 05/26/18 06:00 Laboratory Results 06/05/18 06:30 - Time Spent With Patient Time Spent With Patient: 15" ICD10 Worksheet Patient Problems: Problems Problem Status Onset Psychosis Acute Acute psychosis Acute Anorexia Acute Bipolar disorder Acute Poor fluid intake Acute
[2018-06-13] MEDS: lamoTRIgine 100 MG TAB PO SCH (20:20)
[2018-06-13] MEDS: LITHIUM CARBONATE ER 300 MG TAB PO SCH (20:21)
[2018-06-13] MEDS: OLANZapine DISINTEGR 10 MG TAB PO SCH (20:21)
--- NOTE | 2018-06-14 19:27 | SOAPPROG ---
SOAP Progress Note Assessment/Plan: Assessment: Plan: 05/04/18 14:59 Psychosis/mood: Remains quite psychotic, agitated. Compliant with meds, maintaining adequate PO intake, sleeping reasonably. [facility], monitor. 05/05/18 17:48 Psychosis/Mood: Minimal improvement at this point. CCM. 05/06/18 22:12 Psychosis: REmains quiet ill. Compliant with meds. CCM. 05/09/18 11:03 Psychosis: No real change. Will check lithium level, titrate Lamictal to [address] to 300mg, and Zyprexa from 10mg to 15mg. Monitor. 05/10/18 12:41 Psychosis: Slow improvement. [facility]. Will reorder lithium level. 05/11/18 11:19 Psychosis: Remains compliant with treatment. CCM. 05/12/18 14:46 Psychosis: Slow improvement. Tolerating med titrations well. Insight and judgement remain very poor. CCM. 05/13/18 16:21 Psychosis: No change. CCM. Needs more time to respond as he has shown in the past. 05/16/18 16:08 Psychosis: Slow improvement. CCM. 05/17/18 16:44 Psychosis: Continued slow improvement. Remains very ill, gravely disabled. 05/18/18 13:22 Psychosis: Continued gradual improvement. Will CCM with increase in Lamictal to 300mg and lithium level in the am. Await meeting between Dr. Boudreaux and pt to determine d/c plan. 05/19/18 16:02 Psychosis: Slow improvement. CCM. 05/20/18 15:04 Psychosis: Continued slow improvement. 05/24/18 14:15 Psychosis: No change. CCM. 05/25/18 12:48 Psychosis: No change. CCM. 05/26/18 21:02 Psychosis: Remains psychotic. [facility]. 05/27/18 16:04 Psychosis: Remains psychotic. CCM. 05/30/18 16:05 Psychosis: No change. WIll consider titration of meds though he is on much higher doses than he was prior to admission during his period of stability. 05/31/18 17:39 Psychosis: No change. Will CCM. 06/01/18 13:19 Psychosis: May be slowing down. Less agitated. CCM. 06/02/18 11:01 Psychosis: Slow improvement. He remains paranoid, rejecting established treatment resources and family supports. He is o/w able to logically and appropriately describe how he would provide for his basic needs. Will [facility], communicate with pt's parents and formulate d/c plan. 06/03/18 16:31 Psychosis: Continued slow improvement. Will CCM. No d/c possible until there is a reasonable f/u plan in place. 06/06/18 11:25 Psychosis: Incremental improvement though remains gravely disabled. CCM. 06/07/18 17:14 Psychosis: Slow progress continues. CCM. 06/08/18 15:53 Psychosis: Continue improvement. CCM. 06/09/18 16:17 Psychosis: Continued gradual improvement. Will [facility], continue d/c planning. 06/11/18 07:55 Psychosis: No change in clinical status. CCM. Continue d/c planning. 06/13/18 15:30 Psychosis: Seems to have reached a plateau. Unclear what would improve this except more time. He is refusing outpatient follow-up. Will CCM. 06/14/18 19:26 Psychosis: No change in clinical condition. CCM. COntinue d/c planning. Subjective: Pt seen, discussed with staff. Reports feeling "fine." Refuses to speak with me. Continues to refuse help from staff, inc: d/c planning. Remains compliant with meds. Objective: Vital Signs Temp Pulse Resp BP Pulse Ox 36.3 C 94 16 121/65 H 95 05/22/18 12:25 05/26/18 06:00 05/26/18 06:00 05/26/18 06:00 05/26/18 06:00 Laboratory Results 06/05/18 06:30 MSE: Disheveled, malodorous despite reportedly showering today. Pacing, agitated. Affect is constricted. Mood is "fine." TP abbreviated, linear for brief periods. TC reveals continued paranoia, AH's, IOR's. No SI/HI/. - Time Spent With Patient Time Spent With Patient: 15" ICD10 Worksheet Patient Problems: Problems Problem Status Onset Psychosis Acute Acute psychosis Acute Anorexia Acute Bipolar disorder Acute Poor fluid intake Acute
[2018-06-14] MEDS: lamoTRIgine 100 MG TAB PO SCH (20:56)
[2018-06-14] MEDS: OLANZapine DISINTEGR 10 MG TAB PO SCH (20:56)
[2018-06-14] MEDS: LITHIUM CARBONATE ER 300 MG TAB PO SCH (20:56)
--- NOTE | 2018-06-15 12:09 | ASMTBHDC ---
Notes Note: Notes: The patient agreed to work with an outpatient nurse practitioner. He gave his cell and email address in order to confirm the appointments. He stated, "If you can make it work, I'll go." This auto service writer set up an intake appointment for 06/28/18 with Victor Hugo Mata NP @ 11:30. The patient was notified of this appointment. The patient's former outpatient team at [facility], as well as, [facility] were also notified of this addition to his discharge plan. Date Signed: 06/15/2018 12:08 PM Electronically Signed By:Rafia Echavarria
--- NOTE | 2018-06-15 15:43 | SOAPPROG ---
SOAP Progress Note Assessment/Plan: Assessment: Plan: 05/04/18 14:59 Psychosis/mood: Remains quite psychotic, agitated. Compliant with meds, maintaining adequate PO intake, sleeping reasonably. [facility], monitor. 05/05/18 17:48 Psychosis/Mood: Minimal improvement at this point. CCM. 05/06/18 22:12 Psychosis: REmains quiet ill. Compliant with meds. CCM. 05/09/18 11:03 Psychosis: No real change. Will check lithium level, titrate Lamictal to [address] to 300mg, and Zyprexa from 10mg to 15mg. Monitor. 05/10/18 12:41 Psychosis: Slow improvement. [facility]. Will reorder lithium level. 05/11/18 11:19 Psychosis: Remains compliant with treatment. CCM. 05/12/18 14:46 Psychosis: Slow improvement. Tolerating med titrations well. Insight and judgement remain very poor. CCM. 05/13/18 16:21 Psychosis: No change. CCM. Needs more time to respond as he has shown in the past. 05/16/18 16:08 Psychosis: Slow improvement. CCM. 05/17/18 16:44 Psychosis: Continued slow improvement. Remains very ill, gravely disabled. 05/18/18 13:22 Psychosis: Continued gradual improvement. Will CCM with increase in Lamictal to 300mg and lithium level in the am. Await meeting between Dr. Boudreaux and pt to determine d/c plan. 05/19/18 16:02 Psychosis: Slow improvement. CCM. 05/20/18 15:04 Psychosis: Continued slow improvement. 05/24/18 14:15 Psychosis: No change. CCM. 05/25/18 12:48 Psychosis: No change. CCM. 05/26/18 21:02 Psychosis: Remains psychotic. [facility]. 05/27/18 16:04 Psychosis: Remains psychotic. CCM. 05/30/18 16:05 Psychosis: No change. WIll consider titration of meds though he is on much higher doses than he was prior to admission during his period of stability. 05/31/18 17:39 Psychosis: No change. Will CCM. 06/01/18 13:19 Psychosis: May be slowing down. Less agitated. CCM. 06/02/18 11:01 Psychosis: Slow improvement. He remains paranoid, rejecting established treatment resources and family supports. He is o/w able to logically and appropriately describe how he would provide for his basic needs. Will CCM, communicate with pt's parents and formulate d/c plan. 06/03/18 16:31 Psychosis: Continued slow improvement. Will CCM. No d/c possible until there is a reasonable f/u plan in place. 06/06/18 11:25 Psychosis: Incremental improvement though remains gravely disabled. CCM. 06/07/18 17:14 Psychosis: Slow progress continues. CCM. 06/08/18 15:53 Psychosis: Continue improvement. CCM. 06/09/18 16:17 Psychosis: Continued gradual improvement. Will CCM, continue d/c planning. 06/11/18 07:55 Psychosis: No change in clinical status. CCM. Continue d/c planning. 06/13/18 15:30 Psychosis: Seems to have reached a plateau. Unclear what would improve this except more time. He is refusing outpatient follow-up. Will CCM. 06/14/18 19:26 Psychosis: No change in clinical condition. CCM. COntinue d/c planning. 06/15/18 15:43 Psychosis: Continued gradual improvement. CCM. Subjective: Pt seen, discussed with staff. Reports feeling "fine." States he is willing to go to [facility] for f/u now. Eating, drinking and sleeping adequately. REmains aloof and internally focused, pacing. Compliant with meds. Objective: Vital Signs Temp Pulse Resp BP Pulse Ox 36.3 C 94 16 121/65 H 95 05/22/18 12:25 05/26/18 06:00 05/26/18 06:00 05/26/18 06:00 05/26/18 06:00 Laboratory Results 06/05/18 06:30 MSE: Mildly agitated, guarded. Affect is constricted, stable. Mood is "fine." TP linear. TC reveals continued paranoia. No SI/HI/. - Time Spent With Patient Time Spent With Patient: 15" ICD10 Worksheet Patient Problems: Problems Problem Status Onset Psychosis Acute Acute psychosis Acute Anorexia Acute Bipolar disorder Acute Poor fluid intake Acute
[2018-06-15] MEDS: lamoTRIgine 100 MG TAB PO SCH (19:30)
[2018-06-15] MEDS: LITHIUM CARBONATE ER 300 MG TAB PO SCH (19:30)
[2018-06-15] MEDS: OLANZapine DISINTEGR 10 MG TAB PO SCH (19:30)
--- NOTE | 2018-06-16 12:37 | ASMTBHDC ---
Notes Note: Notes: Pt. stated he plans to walk home instead of taking the bus upon discharge. Pt. stated he can fill and take all of his medications without any issues. Pt. stated he will go to his follow up appointment with Dr. Victor Hugo Mata on 06/28/18 @ 11:20am, and can get himself to this appointment. Pt. denied SI, HI, AVH and paranoia. Pt. stated he is ready to discharge and would like to know what time he can discharge. Pt. presents as alert, cooperative, groomed, pacing, fair eye contact and with a mostly pleasant demeanor. Staff report pt. sleeping 8.5 hours and being medication compliant. Date Signed: 06/16/2018 12:36 PM Electronically Signed By:Reny Samuels
== END 2018-06-16 12:42 | disposition home or self-care (01) | DRG 885 ==
LOC: EDUNIT# → BBEH 05-03 02:50
PROVIDERS: ADMIT Psychiatry & Neurology Psychiatry; ATTEND Psychiatry & Neurology Psychiatry
DX: F25.0 Schizoaffective disorder, bipolar type (principal); E86.0 Dehydration; L55.9 Sunburn, unspecified
CPT/HCPCS: 80305; G0480